=== PATIENT | female | born 1985 | race Two or more races ===

== ENCOUNTER 2024-03-09 18:24 | Emergency (ER) | payer MEDICAID, SELFPAY ==
[2024-03-09 18:25] VITALS: BMI 31.3
[2024-03-09 18:26] VITALS: BP 138/81; PULSE 97; RESP 19; TEMP 36.5; O2SAT 98
--- NOTE | 2024-03-09 18:44 | XR_ITS ---
Examination: Knee, left , 3 views Technique: Knee AP, lateral, oblique 3 views Date and time of exam: March 09, 2024 1857 hrs. Indications: Twisting injury to the knee today, knee pain Findings: Small knee effusion No fracture or dislocation Impression: No fracture or dislocation
--- NOTE | 2024-03-09 18:45 | EDNOTE_ITS ---
Lower Extremity Injury RME/HPI General Chief Complaint: Extremity Injury, Lower Stated Complaint: LEFT KNEE PAIN Time Seen by Provider: 03/09/24 18:44 Source: patient Arrival date/time: 03/09/24 18:24 38-year-old female presents emergency department complaining of left knee pain after hearing a pop while walking this past Saturday. Patient denies any fall or injury. Mode of arrival: wheelchair Limitations: physical limitation Related Data Home Medications ?Medication ?Instructions ?Recorded ?Confirmed albuterol sulfate 90 mcg/actuation 2 puff inhalation Q6H PRN Dyspnea 03/13/21 03/13/21 aerosol inhaler (Ventolin HFA) Previous Rx's ?Medication ?Instructions ?Recorded albuterol sulfate 90 mcg/actuation 2 puff inhalation QID #8.5 grams 03/14/21 aerosol inhaler albuterol sulfate 90 mcg/actuation 2 puff inhalation QID PRN 05/17/21 aerosol inhaler shortness of breath or wheezing #8.5 grams azithromycin 250 mg tablet See Rx Instructions PO .COMPLEX #6 05/17/21 tabs amoxicillin 875 mg-potassium 1 tab PO BID #14 tabs 05/26/21 clavulanate 125 mg tablet (Augmentin) fexofenadine 60 mg-pseudoephedrine 1 tab PO Q12H PRN sinus symptoms 05/26/21 ER 120 mg tablet,ext.release,12 hr #14 tabs (Maggi-D 12 Hour) prednisone 50 mg tablet 50 mg PO QDAY #5 tabs 05/26/21 sulfamethoxazole 800 1 tab PO Q12H #14 tabs 10/20/22 mg-trimethoprim 160 mg tablet (Bactrim DS) prednisone 50 mg tablet 50 mg PO QDAY #5 tabs 11/12/22 Lactobacillus 1 cap PO QDAY #30 caps 03/15/23 acidophilus-Bifidobac.animalis 2.5 billion cell capsule (Daily Probiotic) vpzgscpgqc-yanqvxaicmfpx-yfapzkrl 1 cap PO Q6H PRN headache #20 caps 03/15/23 50 mg-300 mg-40 mg capsule (Fioricet) ondansetron 4 mg disintegrating 4 mg PO Q6H PRN nausea and 03/15/23 tablet vomiting #10 tabs dicyclomine 20 mg tablet 20 mg PO BID #14 tabs 03/26/23 metronidazole 500 mg tablet 500 mg PO BID #14 tabs 03/26/23 ondansetron 4 mg disintegrating 4 mg PO Q8H #20 tabs 03/26/23 tablet acetaminophen 500 mg capsule 1,000 mg (2 x 500 mg) PO Q8HR PRN 05/06/23 pain #30 caps ibuprofen 800 mg tablet 800 mg PO TID PRN pain #30 tabs 05/06/23 ondansetron 4 mg disintegrating 4 mg PO Q8H PRN nausea and 05/06/23 tablet vomiting #10 tabs ibuprofen 600 mg tablet 600 mg PO Q8H PRN pain #20 tabs 03/09/24 Allergies Allergy/AdvReac Type Severity Reaction Status Date / Time ciprofloxacin Allergy Severe itching Verified 03/09/24 18:26 Review of Systems Review of Systems Systems Reviewed: All systems reviewed, normal except as documented Constitutional Constitutional: Reports system reviewed and no additional complaints, except as documented, Denies body ache(s), Denies chills and Denies fever(s) Eyes Eyes: Reports system reviewed and no additional complaints, except as documented and Denies change in vision ENT Ears, Nose, Mouth, and Throat: Reports system reviewed and no additional complaints, except as documented, Denies disequilibrium, Denies dizziness, Denies sore throat and Denies vertigo Cardiovascular Cardiovascular: Reports system reviewed and no additional complaints, except as documented, Denies chest pain and Denies dyspnea Respiratory Respiratory: Reports system reviewed and no additional complaints, except as documented, Denies chest congestion, Denies cough and Denies dyspnea Gastrointestinal Gastrointestinal: Reports system reviewed and no additional complaints, except as documented, Denies abdominal pain, Denies nausea and Denies vomiting Musculoskeletal Musculoskeletal: Reports system reviewed and no additional complaints, except as documented, Denies abnormal gait and Reports arthralgias Integumentary/Breasts Skin/Breast: Reports system reviewed and no additional complaints, except as documented, Denies erythema, Denies rash and Denies wounds Neurologic Neurologic: Reports system reviewed and no additional complaints, except as documented, Denies abnormal gait, Denies disequilibrium, Denies dizziness and Denies vertigo Past Medical History Past Medical History NEUROLOGIC: Positive Migraine; Negative Neurological Disorders CARDIAC: Negative Cardiac Disorders or Congestive Heart Failure RESPIRATORY: Positive Asthma; Negative Chronic Obstructive Pulmonary Disease (COPD) GASTROINTESTINAL: Positive Gall Bladder Disease; Negative Gastrointestinal Disorders GENITOURINARY: Negative Genitourinary Disorders or Renal Disease REPRODUCTIVE: Positive Previous Pregnancies; Negative Breast Cancer MUSCULOSKELETAL: Negative Musculoskeletal Disorders ENDOCRINE: Negative Endocrine Disorders, Diabetes Mellitus Type 1 or Diabetes Mellitus Type 2 HEMATOLOGIC: Negative Blood Disorders or Sickle Cell Disease OTHER HISTORY: Positive Blood Transfusions and Chicken Pox; Negative Autoimmune Disease, Blood Transfusion Reaction, Organ Transplant, MRSA, Clostridium Difficile or Breast Cancer Family History FAMILY HISTORY: Positive Family Respiratory Disorders, Family Cardiac Disorders, Family Gastrointestinal Problems and Family Surgery; Negative Family Psychiatric Problems, Family Cancer or Family Anesthesia Reaction Surgical History SURGICAL: Positive Abdominal Surgery, Tubal Ligation and Section; Negative Cardiac Surgery, Endocrine Surgery, Ear Surgery or Organ Transplant Social History SMOKING STATUS: Never smoker SUBSTANCE USE: does not use ED Exam General Limitations: Present physical limitation General appearance: Present alert and in no apparent distress Head Head exam: Present atraumatic Eye Eye exam: Present normal appearance, PERRL and EOMI ENT ENT exam: Present normal exam, normal oropharynx and mucous membranes moist Neck Neck exam: Present normal inspection, full ROM and trachea midline Chest Chest inspection: Present normal inspection and symmetric chest wall rise Respiratory Respiratory exam: Present normal lung sounds bilaterally Cardiovascular Cardiovascular exam: Present regular rate, normal rhythm and normal heart sounds Abdominal Exam Abdominal exam: Present soft and normal bowel sounds Extremities Exam Extremities exam: Present normal inspection and full ROM Expanded Lower Extremity Exam Knee exam: Present full ROM (Limited active range of motion left knee), tenderness (Left knee) and swelling (+1 left knee) Gait: observed and limited by pain Back Exam Back exam: Present normal inspection and full ROM Neurological Exam Neurological exam: Present alert, oriented X3 and CN II-XII intact Psychiatric Psychiatric exam: Present normal affect and normal mood Skin Skin exam: Present warm, dry, intact and normal color Course Quality Measures none Orders Category Date Time Status Apply knee immobilizer NOW Care 03/09/24 20:39 Completed Crutches .NOW Care 03/09/24 20:39 Completed XR knee LT 3V Stat Exams 03/09/24 18:44 Completed Ketorolac Inj [Toradol Inj] Med 03/09/24 18:44 Discontinued 30 mg IM X1 ONE Vital Signs Vital signs: Vital Signs Temperature 97.7 F 03/09/24 18:26 Pulse Rate 97 03/09/24 18:26 Respiratory Rate 19 03/09/24 18:26 Blood Pressure 138/81 H 03/09/24 18:26 Pulse Oximetry (%) 98 03/09/24 18:26 Oxygen Delivery Method Room Air 03/09/24 18:26 98% room air within normal limits Extremity Injury, Lower MDM Narrative MDM Narrative:: 38-year-old female presents emergency department complaining of left knee pain after hearing a pop while walking this past Saturday. Patient denies any fall or injury. X-rays were negative for any acute fracture or dislocation. Patient's left knee +1 edema with no erythema or signs of infection. Patient un able to bear weight without significant pain. Patient given crutches and knee immobilizer and instructed to follow-up with primary care provider and request MRI of his knee if symptoms persist. Instructed to return to emergency department for any worsening symptoms or as needed. Patient data External records reviewed:: [facility] previous records Clinical information provided by:: patient Social determinants that could affect healthcare access:: none Patient has the following chronic illnesses:: See chart How is presenting disease/condition affected by chronic disease/condition?: uneffected by Evaluation data The following diagnostics were reviewed and interpreted by me:: radiology exam(s) Lab and/or radiology exams considered but not ordered:: Ordered Interpretation Summary: Interpreted by me Medications / Prescriptions Medications or Prescriptions considered but not ordered:: Ordered Medication administrations:: Medication Administration History Discontinued Medications Ketorolac Tromethamine (Ketorolac Inj 60 Mg/2 Ml Vial) 30 mg IM X1 ONE Stop: 03/09/24 18:45 Last Admin: 03/09/24 19:46 Dose: 30 mg Documented By: Given Consultations Consultation(s) initiated? (list below): No Diagnosis Extremity Injury, Lower Differential Diagnosis: acute internal derangement of knee and other (Meniscus tear, ligamentous tear) Most likely diagnosis given after review of the tests above:: Knee sprain Admission Indicated Admission indicated?: not indicated Admission Request Was there a request for admission?: No Disposition Plan Disposition Plan: Discharge Discharge Attestation Discharge Attestation: The patient and all family members were given an opportunity to ask questions and understood the discharge instructions. Discharge instructions specifically effects, indications for sooner follow up or return to the emergency department, and the expected course of current diagnosis. Patient condition: Stable Discharge Plan Plan Patient Disposition: HOME (Self Care) Disposition Comment: Stable Prescriptions/Referrals Prescriptions/Med Rec: New ibuprofen 600 mg tablet 600 mg PO Q8H PRN (Reason: pain) Qty: 20 0RF No Action albuterol sulfate [Ventolin HFA] 90 mcg/actuation Hfa Aerosol Inhaler 2 puff INHALATION Q6H PRN (Reason: Dyspnea) albuterol sulfate 90 mcg/actuation HFA aerosol inhaler 2 puff inhalation QID Qty: 8.5 0RF amoxicillin-pot clavulanate [Augmentin] 875-125 mg tablet 1 tab PO BID Qty: 14 0RF prednisone 50 mg tablet 50 mg PO QDAY Qty: 5 0RF fexofenadine-pseudoephedrine [Maggi-D 12 Hour] 60-120 mg tablet extended release 12 hr 1 tab PO Q12H PRN (Reason: sinus symptoms) Qty: 14 0RF albuterol sulfate 90 mcg/actuation HFA aerosol inhaler 2 puff inhalation QID PRN (Reason: shortness of breath or wheezing) Qty: 8.5 0RF azithromycin 250 mg tablet See Rx Instructions .ROUTE .COMPLEX Qty: 6 0RF Rx Instructions: For 250 mg dose pack: take 500 mg today (day 1), then 250 mg for 4 days (days 2-5) sulfamethoxazole-trimethoprim [Bactrim DS] 800-160 mg tablet 1 tab PO Q12H Qty: 14 0RF prednisone 50 mg tablet 50 mg PO QDAY Qty: 5 0RF ibuprofen 800 mg tablet 800 mg PO TID PRN (Reason: pain) Qty: 30 0RF acetaminophen 500 mg capsule 1,000 mg PO Q8HR PRN (Reason: pain) Qty: 30 0RF ondansetron 4 mg tablet,disintegrating 4 mg PO Q8H PRN (Reason: nausea and vomiting) Qty: 10 0RF smljjjvrmw-zdwxbzjmusppq-jztu [Fioricet] 50-300-40 mg capsule 1 cap PO Q6H PRN (Reason: headache) Qty: 20 0RF Daily Probiotic 2.5 billion cell capsule 1 cap PO QDAY Qty: 30 0RF ondansetron 4 mg tablet,disintegrating 4 mg PO Q6H PRN (Reason: nausea and vomiting) Qty: 10 0RF metronidazole 500 mg tablet 500 mg PO BID Qty: 14 0RF dicyclomine 20 mg tablet 20 mg PO BID Qty: 14 0RF ondansetron 4 mg tablet,disintegrating 4 mg PO Q8H Qty: 20 0RF Referrals: Dorcas Ohara PA-C [Primary Care Provider] - In 1 week Problem List Clinical Impression: Knee pain Patient/Caregiver Discharge Instructions Discharge Activity: activity as tolerated Education Materials: MADDISON XAVIER Knee Sprain Additional Instructions: Take medication as prescribed. Follow-up with primary care provider and request referral to physical therapy or MRI of knee if symptoms persist. Return to the emergency department for any worsening symptoms or as needed. Print Language: Czech Stand Alone Forms: Rebeka Award Info., Patient Portal Info Letter PA/KAMLESH Supervising Physician PA/KAMLESH Supervising Physician: Dr. Shaista ADAMS Attestation Attestation The patient was seen by the midlevel practitioner. I, the co-signing physician, was present during the entire ER visit. While I did not physically examine the patient, I was available for consultation as needed.
[2024-03-09] MEDS: KETOROLAC INJ 60 MG/2 ML VIAL 30 MG IM (19:46)
== END 2024-03-09 21:00 | disposition home or self-care (01) ==
PROVIDERS: Emergency Provider Emergency Medicine; PCP Physician Assistant
DX: S89.92XA Unspecified injury of left lower leg, initial encounter (principal); X50.1XXA Overexertion from prolonged static or awkward postures, initial encounter; Y93.01 Activity, walking, marching and hiking
CPT/HCPCS: 73562; 96372; 99283; J1885

== ENCOUNTER 2024-04-10 13:02 | Emergency (ER) | payer MEDICAID, SELFPAY ==
[2024-04-10 13:11] VITALS: BP 131/84; PULSE 100; RESP 16; TEMP 36.8; O2SAT 98; BMI 34.4
--- NOTE | 2024-04-10 13:18 | PD.EDSKIN ---
ED Skin Abcess FB-RME/HPI General Chief complaint: Skin/Abscess/Foreign Body Stated complaint: BOIL LEFT HEAD/ PAIN/ PRESSURE/ CHILL/FEVER X3DAYS Time Seen by Provider: 04/10/24 13:16 Source: patient, RN notes reviewed and old records reviewed Arrival date/time: 04/10/24 13:02 Mode of arrival: ambulatory Limitations: no limitations RME / HPI RME / HPI narrative: 38yof presents to ED for redness and swelling to left frontal scalp x3 days. No preceding injury. Patient states affected area has gradually become more tender. Denies fever or vomiting. Patient has applied warm compresses without symptom improvement. 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 Related Data Home Medications ?Medication ?Instructions ?Recorded ?Confirmed albuterol sulfate 90 mcg/actuation 2 puff inhalation Q6H PRN Dyspnea 03/13/21 03/13/21 aerosol inhaler (Ventolin HFA) Previous Rx's ?Medication ?Instructions ?Recorded albuterol sulfate 90 mcg/actuation 2 puff inhalation QID #8.5 grams 03/14/21 aerosol inhaler albuterol sulfate 90 mcg/actuation 2 puff inhalation QID PRN 05/17/21 aerosol inhaler shortness of breath or wheezing #8.5 grams azithromycin 250 mg tablet See Rx Instructions PO .COMPLEX #6 05/17/21 tabs amoxicillin 875 mg-potassium 1 tab PO BID #14 tabs 05/26/21 clavulanate 125 mg tablet (Augmentin) fexofenadine 60 mg-pseudoephedrine 1 tab PO Q12H PRN sinus symptoms 05/26/21 ER 120 mg tablet,ext.release,12 hr #14 tabs (Maggi-D 12 Hour) prednisone 50 mg tablet 50 mg PO QDAY #5 tabs 05/26/21 sulfamethoxazole 800 1 tab PO Q12H #14 tabs 10/20/22 mg-trimethoprim 160 mg tablet (Bactrim DS) prednisone 50 mg tablet 50 mg PO QDAY #5 tabs 11/12/22 Lactobacillus 1 cap PO QDAY #30 caps 03/15/23 acidophilus-Bifidobac.animalis 2.5 billion cell capsule (Daily Probiotic) gtwfitfvbi-qhsqxhghhrwxv-lzeeqnoq 1 cap PO Q6H PRN headache #20 caps 03/15/23 50 mg-300 mg-40 mg capsule (Fioricet) ondansetron 4 mg disintegrating 4 mg PO Q6H PRN nausea and 03/15/23 tablet vomiting #10 tabs dicyclomine 20 mg tablet 20 mg PO BID #14 tabs 03/26/23 metronidazole 500 mg tablet 500 mg PO BID #14 tabs 03/26/23 ondansetron 4 mg disintegrating 4 mg PO Q8H #20 tabs 03/26/23 tablet acetaminophen 500 mg capsule 1,000 mg (2 x 500 mg) PO Q8HR PRN 05/06/23 pain #30 caps ibuprofen 800 mg tablet 800 mg PO TID PRN pain #30 tabs 05/06/23 ondansetron 4 mg disintegrating 4 mg PO Q8H PRN nausea and 05/06/23 tablet vomiting #10 tabs ibuprofen 600 mg tablet 600 mg PO Q8H PRN pain #20 tabs 03/09/24 acetaminophen 500 mg tablet 1,000 mg (2 x 500 mg) PO Q6H PRN 04/10/24 (Tylenol Extra Strength) pain #30 tabs ibuprofen 600 mg tablet 600 mg PO Q6H PRN pain #30 tabs 04/10/24 sulfamethoxazole 800 1 tab PO BID 7 days #14 tabs 04/10/24 mg-trimethoprim 160 mg tablet (Bactrim DS) Allergies Allergy/AdvReac Type Severity Reaction Status Date / Time ciprofloxacin Allergy Severe itching Verified 04/10/24 13:03 Review of Systems Review of Systems Systems Reviewed: All systems reviewed, normal except as documented Constitutional Constitutional: Denies chills, Denies fever(s) and Reports headache(s) ENT Ears, Nose, Mouth, and Throat: Reports headache(s) Gastrointestinal Gastrointestinal: Denies nausea and Denies vomiting Integumentary/Breasts Skin/Breast: Reports erythema and Reports skin swelling Neurologic Neurologic: Reports headache(s) Past Medical History Surgical History OTHER SURGICAL HX: Denies past surgical history Social History SMOKING STATUS: Never smoker SUBSTANCE USE: does not use ALCOHOL: Never Past Medical History Comments PMH COMMENT: Asthma, obesity ED Exam General Limitations: Present no limitations General appearance: Present alert and in no apparent distress Head Head exam: Present atraumatic, normocephalic and other (Nickel sized area of erythema, mild swelling and tenderness to left frontal scalp/hairline. Mild induration, no fluctuance or drainage.) Eye Eye exam: Present normal appearance, PERRL and EOMI ENT ENT exam: Present normal exam and mucous membranes moist Neck Neck exam: Present normal inspection and full ROM Chest Chest inspection: Present normal inspection and symmetric chest wall rise Respiratory Respiratory exam: Present normal lung sounds bilaterally; Absent respiratory distress Cardiovascular Cardiovascular exam: Present regular rate and normal rhythm Extremities Exam Extremities exam: Present normal inspection and full ROM Neurological Exam Neurological exam: Present alert and oriented X3 Psychiatric Psychiatric exam: Present normal affect and normal mood Skin Skin exam: Present warm, dry and intact Course Quality Measures none Orders Category Date Time Status Acetaminophen Tab [Tylenol ES Tab] Med 04/10/24 13:19 Discontinued 1,000 mg PO X1 ONE Ketorolac Inj [Toradol Inj] Med 04/10/24 13:19 Discontinued 30 mg IM X1 ONE Vital Signs Vital signs: Vital Signs Temperature 98.2 F 04/10/24 13:11 Pulse Rate 100 04/10/24 13:11 Respiratory Rate 16 04/10/24 13:11 Blood Pressure 131/84 H 04/10/24 13:11 Pulse Oximetry (%) 98 04/10/24 13:11 Oxygen Delivery Method Room Air 04/10/24 13:11 Skin / Abscess / Foreign Body MDM Narrative MDM Narrative:: 38yof presents to ED for redness and swelling to left frontal scalp x3 days. No preceding injury.? Patient states affected area has gradually become more tender.? Denies fever or vomiting.? Patient has applied warm compresses without symptom improvement.? 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 Exam findings c/w folliculitis, there is nothing to I&D at this time. Will treat with oral antibiotics, encourage continued warm compresses, Motrin/Tylenol prn pain. Stable for discharge, RTED precautions given. Patient data External records reviewed:: [facility] previous records (03/09/2024 ED visit for knee pain) Clinical information provided by:: patient Social determinants that could affect healthcare access:: other (specify) (Poor access to healthcare) Patient has the following chronic illnesses:: Asthma, obesity How is presenting disease/condition affected by chronic disease/condition?: uneffected by Evaluation data The following diagnostics were reviewed and interpreted by me:: other (specify) (None) Lab and/or radiology exams considered but not ordered:: None Interpretation Summary: na Medications / Prescriptions Medications or Prescriptions considered but not ordered:: None Medication administrations:: Medication Administration History Discontinued Medications Acetaminophen (Acetaminophen 500 Mg Tablet) 1,000 mg PO X1 ONE Stop: 04/10/24 13:20 Last Admin: 04/10/24 13:34 Dose: 1,000 mg Documented By: Ketorolac Tromethamine (Ketorolac Inj 60 Mg/2 Ml Vial) 30 mg IM X1 ONE Stop: 04/10/24 13:20 Last Admin: 04/10/24 13:34 Dose: 30 mg Documented By: Above medications administered in ED Consultations Consultation(s) initiated? (list below): No Diagnosis Skin/Abscess Differential Diagnosis: other (Abscess, cellulitis, insect bite, dermatitis, folliculitis) Most likely diagnosis given after review of the tests above:: Folliculitis Admission Indicated Admission indicated?: not indicated Admission Request Was there a request for admission?: No Disposition Plan Disposition Plan: Discharge Discharge Attestation Discharge Attestation: The patient and all family members were given an opportunity to ask questions and understood the discharge instructions. Discharge instructions specifically effects, indications for sooner follow up or return to the emergency department, and the expected course of current diagnosis. Patient condition: Stable Discharge Plan Plan Patient Disposition: HOME (Self Care) Patient condition on transfer: Stable Prescriptions/Referrals Prescriptions/Med Rec: New sulfamethoxazole-trimethoprim [Bactrim DS] 800-160 mg tablet 1 tab PO BID 7 Days Qty: 14 0RF ibuprofen 600 mg tablet 600 mg PO Q6H PRN (Reason: pain) Qty: 30 0RF acetaminophen [Tylenol Extra Strength] 500 mg tablet 1,000 mg PO Q6H PRN (Reason: pain) Qty: 30 0RF No Action albuterol sulfate [Ventolin HFA] 90 mcg/actuation Hfa Aerosol Inhaler 2 puff INHALATION Q6H PRN (Reason: Dyspnea) albuterol sulfate 90 mcg/actuation HFA aerosol inhaler 2 puff inhalation QID Qty: 8.5 0RF amoxicillin-pot clavulanate [Augmentin] 875-125 mg tablet 1 tab PO BID Qty: 14 0RF prednisone 50 mg tablet 50 mg PO QDAY Qty: 5 0RF fexofenadine-pseudoephedrine [Maggi-D 12 Hour] 60-120 mg tablet extended release 12 hr 1 tab PO Q12H PRN (Reason: sinus symptoms) Qty: 14 0RF albuterol sulfate 90 mcg/actuation HFA aerosol inhaler 2 puff inhalation QID PRN (Reason: shortness of breath or wheezing) Qty: 8.5 0RF azithromycin 250 mg tablet See Rx Instructions .ROUTE .COMPLEX Qty: 6 0RF Rx Instructions: For 250 mg dose pack: take 500 mg today (day 1), then 250 mg for 4 days (days 2-5) sulfamethoxazole-trimethoprim [Bactrim DS] 800-160 mg tablet 1 tab PO Q12H Qty: 14 0RF prednisone 50 mg tablet 50 mg PO QDAY Qty: 5 0RF ibuprofen 800 mg tablet 800 mg PO TID PRN (Reason: pain) Qty: 30 0RF acetaminophen 500 mg capsule 1,000 mg PO Q8HR PRN (Reason: pain) Qty: 30 0RF ondansetron 4 mg tablet,disintegrating 4 mg PO Q8H PRN (Reason: nausea and vomiting) Qty: 10 0RF spxpuvuhte-izhatdohhskii-bsik [Fioricet] 50-300-40 mg capsule 1 cap PO Q6H PRN (Reason: headache) Qty: 20 0RF Daily Probiotic 2.5 billion cell capsule 1 cap PO QDAY Qty: 30 0RF ondansetron 4 mg tablet,disintegrating 4 mg PO Q6H PRN (Reason: nausea and vomiting) Qty: 10 0RF metronidazole 500 mg tablet 500 mg PO BID Qty: 14 0RF dicyclomine 20 mg tablet 20 mg PO BID Qty: 14 0RF ondansetron 4 mg tablet,disintegrating 4 mg PO Q8H Qty: 20 0RF ibuprofen 600 mg tablet 600 mg PO Q8H PRN (Reason: pain) Qty: 20 0RF Problem List Clinical Impression: Folliculitis Patient/Caregiver Discharge Instructions Education Materials: ED Folliculitis Print Language: Kyrgyz Stand Alone Forms: Rebeka Award Info., Work/School Release, Patient Portal Info Letter PA/EVP AND CHIEF OPERATING OFFICER Supervising Physician PA/EVP AND CHIEF OPERATING OFFICER Supervising Physician: Cherry
[2024-04-10] MEDS: KETOROLAC INJ 60 MG/2 ML VIAL 30 MG IM (13:34)
[2024-04-10] MEDS: ACETAMINOPHEN 500 MG TABLET 1000 MG PO (13:34)
== END 2024-04-10 13:54 | disposition home or self-care (01) ==
PROVIDERS: Emergency Provider Emergency Medicine; PCP Physician Assistant
DX: L73.9 Follicular disorder, unspecified (principal)
CPT/HCPCS: 96372; 99283; J1885; A9270

== ENCOUNTER 2024-04-23 19:47 | Emergency (ER) | payer MEDICAID, SELFPAY ==
[2024-04-23 19:48] VITALS: BMI 32.8
[2024-04-23 20:10] VITALS: BP 112/85; PULSE 99; RESP 18; TEMP 36.9; O2SAT 99
--- NOTE | 2024-04-23 20:31 | EDNOTE_ITS ---
ED Eye Problem RME/HPI General Chief complaint: Eye Problems Stated complaint: LEFT EYE RED,SWELLING,ITCHING,BURN,WATERY Time Seen by Provider: 04/23/24 20:05 Arrival date/time: 04/23/24 19:47 RME / HPI RME / HPI Narrative: This section includes all my notes and documentations, including HPI, PE, and ED course. Robert Carey MD HPI: 38-year-old female here with several days of worsening pain and swelling in the left thigh. No fever. No other complaints. ROS: All negative except as documented in HPI. Physical Exam: General: Alert and oriented. Eyes: Left conjunctiva injected with exudate. Left upper eyelid severely edematous with erythema and calor and tenderness. ENT: No nasal congestion. Neck: Supple. Lungs: No respiratory distress. Skin: Warm and dry. Neuro: Alert and oriented X 3. Made clinical diagnosis of left blepharitis and conjunctivitis. Treatment here included Augmentin and ibuprofen. Recommended a trial of outpatient treatment. Based on my best medical judgment, made decision no further evaluation or treatment indicated at this time. Patient understands and agrees to the discharge instructions customized and printed, see below. Discharge Instructions from Dr. Carey printed for you: 1. Take Augmentin and use the eyedrops for your severe left eye infection. 2. Ibuprofen 800 mg every 6-8 hours today and tomorrow to decrease inflammation then as needed. 3. And never touch your eyes with your hands which has many dangerous germs. 4. See a private doctor next week if not completely better. Ask for a referral to see fundraising specialist. 5. Seek immediate medical care with worsening or with any concerns. Robert Carey MD Related Data Home Medications ?Medication ?Instructions ?Recorded ?Confirmed albuterol sulfate 90 mcg/actuation 2 puff inhalation Q6H PRN Dyspnea 03/13/21 03/13/21 aerosol inhaler (Ventolin HFA) Previous Rx's ?Medication ?Instructions ?Recorded albuterol sulfate 90 mcg/actuation 2 puff inhalation QID #8.5 grams 03/14/21 aerosol inhaler albuterol sulfate 90 mcg/actuation 2 puff inhalation QID PRN 05/17/21 aerosol inhaler shortness of breath or wheezing #8.5 grams azithromycin 250 mg tablet See Rx Instructions PO .COMPLEX #6 05/17/21 tabs amoxicillin 875 mg-potassium 1 tab PO BID #14 tabs 05/26/21 clavulanate 125 mg tablet (Augmentin) fexofenadine 60 mg-pseudoephedrine 1 tab PO Q12H PRN sinus symptoms 05/26/21 ER 120 mg tablet,ext.release,12 hr #14 tabs (Maggi-D 12 Hour) prednisone 50 mg tablet 50 mg PO QDAY #5 tabs 05/26/21 sulfamethoxazole 800 1 tab PO Q12H #14 tabs 10/20/22 mg-trimethoprim 160 mg tablet (Bactrim DS) prednisone 50 mg tablet 50 mg PO QDAY #5 tabs 11/12/22 Lactobacillus 1 cap PO QDAY #30 caps 03/15/23 acidophilus-Bifidobac.animalis 2.5 billion cell capsule (Daily Probiotic) brfhgsikfv-eojxoiuniuavu-hrnvzbnm 1 cap PO Q6H PRN headache #20 caps 03/15/23 50 mg-300 mg-40 mg capsule (Fioricet) ondansetron 4 mg disintegrating 4 mg PO Q6H PRN nausea and 03/15/23 tablet vomiting #10 tabs dicyclomine 20 mg tablet 20 mg PO BID #14 tabs 03/26/23 metronidazole 500 mg tablet 500 mg PO BID #14 tabs 03/26/23 ondansetron 4 mg disintegrating 4 mg PO Q8H #20 tabs 03/26/23 tablet acetaminophen 500 mg capsule 1,000 mg (2 x 500 mg) PO Q8HR PRN 05/06/23 pain #30 caps ibuprofen 800 mg tablet 800 mg PO TID PRN pain #30 tabs 05/06/23 ondansetron 4 mg disintegrating 4 mg PO Q8H PRN nausea and 05/06/23 tablet vomiting #10 tabs ibuprofen 600 mg tablet 600 mg PO Q8H PRN pain #20 tabs 03/09/24 acetaminophen 500 mg tablet 1,000 mg (2 x 500 mg) PO Q6H PRN 04/10/24 (Tylenol Extra Strength) pain #30 tabs ibuprofen 600 mg tablet 600 mg PO Q6H PRN pain #30 tabs 04/10/24 amoxicillin 875 mg-potassium 1 tab PO BID #10 tabs 04/23/24 clavulanate 125 mg tablet racyyxog-ndecradbg-qsqodtow 3.5 1 drp ophthalmic (eye) QID 5 days 04/23/24 mg/mL-10,000 unit/mL-0.1% eye #5 mL drops (Maxitrol) Allergies Allergy/AdvReac Type Severity Reaction Status Date / Time ciprofloxacin Allergy Severe itching Verified 04/10/24 13:03 Course Quality Measures none Orders Category Date Time Status Amoxicillin/Pot Clav 875 [Augmentin 875] Med 04/23/24 20:20 Discontinued 1 tab PO X1 ONE Ibuprofen Tab [Motrin Tab] Med 04/23/24 20:20 Discontinued 800 mg PO X1 ONE Vital Signs Vital signs: Vital Signs Temperature 98.5 F 04/23/24 20:10 Pulse Rate 99 04/23/24 20:10 Respiratory Rate 18 04/23/24 20:10 Blood Pressure 112/85 H 04/23/24 20:10 Pulse Oximetry (%) 99 04/23/24 20:10 Oxygen Delivery Method Room Air 04/23/24 20:10 Eye Patient data External records reviewed:: [facility] previous records Clinical information provided by:: patient Social determinants that could affect healthcare access:: none Patient has the following chronic illnesses:: Asthma How is presenting disease/condition affected by chronic disease/condition?: uneffected by Evaluation data The following diagnostics were reviewed and interpreted by me:: other (specify) (No diagnostic tests indicated) Lab and/or radiology exams considered but not ordered:: None Interpretation Summary: No diagnostic tests ordered Medications / Prescriptions Medications or Prescriptions considered but not ordered:: None Medication administrations:: Medication Administration History Discontinued Medications Amoxicillin/Clavulanate Potassium (Amoxicillin/Pot Clav 875 Tablet) 1 tab PO X1 ONE Stop: 04/23/24 20:21 Ibuprofen (Ibuprofen Tab 400 Mg Tablet) 800 mg PO X1 ONE Stop: 04/23/24 20:21 Augmentin and ibuprofen Consultations Consultation(s) initiated? (list below): No Diagnosis Eye Problem Differential Diagnosis: corneal abrasion, conjunctivitis, periorbital cellulitis, subconjunctival hemorrhage and other (Blepharitis) Most likely diagnosis given after review of the tests above:: Conjunctivitis and blepharitis Admission Indicated Admission indicated?: not indicated Explain why admission is indicated or not indicated:: Admission criteria not met Admission Request Was there a request for admission?: No Disposition Plan Disposition Plan: Discharge Discharge Attestation Discharge Attestation: The patient and all family members were given an opportunity to ask questions and understood the discharge instructions. Discharge instructions specifically effects, indications for sooner follow up or return to the emergency department, and the expected course of current diagnosis. Patient condition: Stable Discharge Plan Plan Patient Disposition: HOME (Self Care) Prescriptions/Referrals Prescriptions/Med Rec: New amoxicillin-pot clavulanate 875-125 mg tablet 1 tab PO BID Qty: 10 0RF neomycin-polymyxin B-dexameth [Maxitrol] 3.5mg/mL-10,000 unit/mL-0.1 % drops,suspension 1 drp ophthalmic (eye) QID 5 Days Qty: 5 0RF No Action albuterol sulfate [Ventolin HFA] 90 mcg/actuation Hfa Aerosol Inhaler 2 puff INHALATION Q6H PRN (Reason: Dyspnea) albuterol sulfate 90 mcg/actuation HFA aerosol inhaler 2 puff inhalation QID Qty: 8.5 0RF amoxicillin-pot clavulanate [Augmentin] 875-125 mg tablet 1 tab PO BID Qty: 14 0RF prednisone 50 mg tablet 50 mg PO QDAY Qty: 5 0RF fexofenadine-pseudoephedrine [Maggi-D 12 Hour] 60-120 mg tablet extended release 12 hr 1 tab PO Q12H PRN (Reason: sinus symptoms) Qty: 14 0RF albuterol sulfate 90 mcg/actuation HFA aerosol inhaler 2 puff inhalation QID PRN (Reason: shortness of breath or wheezing) Qty: 8.5 0RF azithromycin 250 mg tablet See Rx Instructions .ROUTE .COMPLEX Qty: 6 0RF Rx Instructions: For 250 mg dose pack: take 500 mg today (day 1), then 250 mg for 4 days (days 2-5) sulfamethoxazole-trimethoprim [Bactrim DS] 800-160 mg tablet 1 tab PO Q12H Qty: 14 0RF prednisone 50 mg tablet 50 mg PO QDAY Qty: 5 0RF ibuprofen 800 mg tablet 800 mg PO TID PRN (Reason: pain) Qty: 30 0RF acetaminophen 500 mg capsule 1,000 mg PO Q8HR PRN (Reason: pain) Qty: 30 0RF ondansetron 4 mg tablet,disintegrating 4 mg PO Q8H PRN (Reason: nausea and vomiting) Qty: 10 0RF ibuprofen 600 mg tablet 600 mg PO Q6H PRN (Reason: pain) Qty: 30 0RF acetaminophen [Tylenol Extra Strength] 500 mg tablet 1,000 mg PO Q6H PRN (Reason: pain) Qty: 30 0RF quebpocybb-jxairtjlwtdxa-kcub [Fioricet] 50-300-40 mg capsule 1 cap PO Q6H PRN (Reason: headache) Qty: 20 0RF Daily Probiotic 2.5 billion cell capsule 1 cap PO QDAY Qty: 30 0RF ondansetron 4 mg tablet,disintegrating 4 mg PO Q6H PRN (Reason: nausea and vomiting) Qty: 10 0RF metronidazole 500 mg tablet 500 mg PO BID Qty: 14 0RF dicyclomine 20 mg tablet 20 mg PO BID Qty: 14 0RF ondansetron 4 mg tablet,disintegrating 4 mg PO Q8H Qty: 20 0RF ibuprofen 600 mg tablet 600 mg PO Q8H PRN (Reason: pain) Qty: 20 0RF Problem List Clinical Impression: Infection of left eye Patient/Caregiver Discharge Instructions Discharge Activity: activity as tolerated Education Materials: ED Blepharitis, ED Conjunctivitis, Bacterial Additional Instructions: Discharge Instructions from Dr. Carey printed for you: 1. Take Augmentin and use the eyedrops for your severe left eye infection. 2. Ibuprofen 800 mg every 6-8 hours today and tomorrow to decrease inflammation then as needed. 3. And never touch your eyes with your hands which has many dangerous germs. 4. See a private doctor next week if not completely better. Ask for a referral to see fundraising specialist. 5. Seek immediate medical care with worsening or with any concerns. Print Language: Serbian Stand Alone Forms: Rebeka Award Info., Patient Portal Info Letter
[2024-04-23] MEDS: IBUPROFEN TAB 400 MG TABLET 800 MG PO (20:36)
[2024-04-23] MEDS: AMOXICILLIN/POT CLAV 875 TABLET 1 TAB PO (20:36)
== END 2024-04-23 22:04 | disposition home or self-care (01) ==
LOC: SERX 20:39
PROVIDERS: Emergency Provider Emergency Medicine; PCP Physician Assistant
DX: H01.004 Unspecified blepharitis left upper eyelid (principal); H10.9 Unspecified conjunctivitis
CPT/HCPCS: 99282; A9270

== ENCOUNTER 2024-06-15 11:41 | Emergency (ER) | payer MEDICAID, SELFPAY ==
[2024-06-15 11:42] VITALS: BMI 34.4
[2024-06-15 12:04] VITALS: BP 131/89; PULSE 130; RESP 20; TEMP 38.1; O2SAT 97
--- NOTE | 2024-06-15 12:05 | XR_ITS ---
Examination: PA lateral chest 2 views Technique: Upright PA lateral chest 2 views Exam date and time: June 15, 2024 1232 hrs. Comparison May 06, 2023 Indications: Shortness of breath beginning 3 months ago. Findings: Normal heart size. No pneumonia or pulmonary edema The osseous structures are intact Impression: No active disease
[2024-06-15] MEDS: DEXAMETHASONE SOD PHOS INJ 10 MG/ML VIAL PO (12:25)
[2024-06-15 12:43] VITALS: TEMP 38.1
[2024-06-15] MEDS: ACETAMINOPHEN 500 MG TABLET 1000 MG PO (12:43)
[2024-06-15] MEDS: IBUPROFEN TAB 400 MG TABLET 800 MG PO (12:43)
[2024-06-15 12:44] VITALS: PULSE 95
[2024-06-15] MEDS: ALBUTEROL RT 2.5 MG/0.5 ML NEBU 5 MG INH (12:44)
[2024-06-15] MEDS: IPRATROPIUM RT 0.5 MG/ 2.5 ML NEBU 1 MG INH (12:44)
[2024-06-15 12:47] VITALS: PULSE 96; RESP 19; O2SAT 99
--- NOTE | 2024-06-15 14:19 | PD.ASTHM ---
ED Asthma RME/HPI General Chief Complaint: Asthma Stated Complaint: ASTHMA EXACERBATION; WHEEZING AND CHEST TIGHTNESS Time Seen by Provider: 06/15/24 12:04 Arrival date/time: 06/15/24 11:41 38-year-old female with history of asthma presents emergency department complains of cough, congestion, fever and reports that her asthma is acting up Limitations: no limitations Related Data Home Medications ?Medication ?Instructions ?Recorded ?Confirmed albuterol sulfate 90 mcg/actuation 2 puff inhalation Q6H PRN Dyspnea 03/13/21 03/13/21 aerosol inhaler (Ventolin HFA) Previous Rx's ?Medication ?Instructions ?Recorded albuterol sulfate 90 mcg/actuation 2 puff inhalation QID #8.5 grams 03/14/21 aerosol inhaler albuterol sulfate 90 mcg/actuation 2 puff inhalation QID PRN 05/17/21 aerosol inhaler shortness of breath or wheezing #8.5 grams azithromycin 250 mg tablet See Rx Instructions PO .COMPLEX #6 05/17/21 tabs amoxicillin 875 mg-potassium 1 tab PO BID #14 tabs 05/26/21 clavulanate 125 mg tablet (Augmentin) fexofenadine 60 mg-pseudoephedrine 1 tab PO Q12H PRN sinus symptoms 05/26/21 ER 120 mg tablet,ext.release,12 hr #14 tabs (Maggi-D 12 Hour) prednisone 50 mg tablet 50 mg PO QDAY #5 tabs 05/26/21 sulfamethoxazole 800 1 tab PO Q12H #14 tabs 10/20/22 mg-trimethoprim 160 mg tablet (Bactrim DS) prednisone 50 mg tablet 50 mg PO QDAY #5 tabs 11/12/22 Lactobacillus 1 cap PO QDAY #30 caps 03/15/23 acidophilus-Bifidobac.animalis 2.5 billion cell capsule (Daily Probiotic) yeiwlmsqgh-uxcsuwdwdyuga-lvbomtts 1 cap PO Q6H PRN headache #20 caps 03/15/23 50 mg-300 mg-40 mg capsule (Fioricet) ondansetron 4 mg disintegrating 4 mg PO Q6H PRN nausea and 03/15/23 tablet vomiting #10 tabs dicyclomine 20 mg tablet 20 mg PO BID #14 tabs 03/26/23 metronidazole 500 mg tablet 500 mg PO BID #14 tabs 03/26/23 ondansetron 4 mg disintegrating 4 mg PO Q8H #20 tabs 03/26/23 tablet acetaminophen 500 mg capsule 1,000 mg (2 x 500 mg) PO Q8HR PRN 05/06/23 pain #30 caps ibuprofen 800 mg tablet 800 mg PO TID PRN pain #30 tabs 05/06/23 ondansetron 4 mg disintegrating 4 mg PO Q8H PRN nausea and 05/06/23 tablet vomiting #10 tabs ibuprofen 600 mg tablet 600 mg PO Q8H PRN pain #20 tabs 03/09/24 acetaminophen 500 mg tablet 1,000 mg (2 x 500 mg) PO Q6H PRN 04/10/24 (Tylenol Extra Strength) pain #30 tabs ibuprofen 600 mg tablet 600 mg PO Q6H PRN pain #30 tabs 04/10/24 amoxicillin 875 mg-potassium 1 tab PO BID #10 tabs 04/23/24 clavulanate 125 mg tablet benzonatate 100 mg capsule 100 mg PO TID #14 caps 06/15/24 prednisone 10 mg tablet 30 mg (3 x 10 mg) PO BID 3 days 06/15/24 #18 tabs Allergies Allergy/AdvReac Type Severity Reaction Status Date / Time ciprofloxacin Allergy Severe itching Verified 06/15/24 11:46 Review of Systems Review of Systems Systems Reviewed: All systems reviewed, normal except as documented Constitutional Constitutional: Reports system reviewed and no additional complaints, except as documented, Denies fever(s) and Denies headache(s) Eyes Eyes: Reports system reviewed and no additional complaints, except as documented and Denies blurry vision ENT Ears, Nose, Mouth, and Throat: Reports system reviewed and no additional complaints, except as documented, Denies headache(s), Denies nasal congestion and Denies nasal discharge Cardiovascular Cardiovascular: Reports system reviewed and no additional complaints, except as documented, Denies chest pain and Denies dyspnea Respiratory Respiratory: Reports system reviewed and no additional complaints, except as documented, Reports chest congestion, Reports cough, Denies dyspnea and Reports wheezing Gastrointestinal Gastrointestinal: Reports system reviewed and no additional complaints, except as documented and Denies abdominal pain Integumentary/Breasts Skin/Breast: Reports system reviewed and no additional complaints, except as documented and Denies rash Neurologic Neurologic: Reports system reviewed and no additional complaints, except as documented, Reports as per HPI and Denies headache(s) Allergic/Immunologic Allergic/Immunologic: Reports wheezing Past Medical History Past Medical History NEUROLOGIC: Positive Migraine; Negative Neurological Disorders CARDIAC: Negative Cardiac Disorders or Congestive Heart Failure RESPIRATORY: Positive Asthma; Negative Chronic Obstructive Pulmonary Disease (COPD) GASTROINTESTINAL: Positive Gall Bladder Disease; Negative Gastrointestinal Disorders GENITOURINARY: Negative Genitourinary Disorders or Renal Disease REPRODUCTIVE: Positive Previous Pregnancies; Negative Breast Cancer MUSCULOSKELETAL: Negative Musculoskeletal Disorders ENDOCRINE: Negative Endocrine Disorders, Diabetes Mellitus Type 1 or Diabetes Mellitus Type 2 HEMATOLOGIC: Negative Blood Disorders or Sickle Cell Disease OTHER HISTORY: Positive Blood Transfusions and Chicken Pox; Negative Autoimmune Disease, Blood Transfusion Reaction, Organ Transplant, MRSA, Clostridium Difficile or Breast Cancer Family History FAMILY HISTORY: Positive Family Respiratory Disorders, Family Cardiac Disorders, Family Gastrointestinal Problems and Family Surgery; Negative Family Psychiatric Problems, Family Cancer or Family Anesthesia Reaction Surgical History SURGICAL: Positive Abdominal Surgery, Tubal Ligation and Section; Negative Cardiac Surgery, Endocrine Surgery, Ear Surgery or Organ Transplant Social History SMOKING STATUS: Never smoker SUBSTANCE USE: does not use ED Exam General Limitations: Present no limitations General appearance: Present alert and in no apparent distress Head Head exam: Present atraumatic, normocephalic and normal inspection Eye Eye exam: Present normal appearance, PERRL and EOMI; Absent conjunctival injection ENT ENT exam: Present normal exam, normal oropharynx and mucous membranes moist Neck Neck exam: Present normal inspection, full ROM and trachea midline Chest Chest inspection: Present normal inspection and symmetric chest wall rise Respiratory Respiratory exam: Present wheezes; Absent respiratory distress, stridor, accessory muscle use or prolonged expiratory phase Cardiovascular Cardiovascular exam: Present regular rate, normal rhythm and normal heart sounds Abdominal Exam Abdominal exam: Present soft and normal bowel sounds Extremities Exam Extremities exam: Present normal inspection and full ROM Back Exam Back exam: Present normal inspection and full ROM Neurological Exam Neurological exam: Present alert, oriented X3 and CN II-XII intact Psychiatric Psychiatric exam: Present normal affect and normal mood Skin Skin exam: Present warm, dry, intact and normal color Course Quality Measures none Orders Category Date Time Status Bedside Influenza A&B Antigen Test NOW Care 06/15/24 12:05 Completed XR chest 2V Stat Exams 06/15/24 12:05 Completed ALBUTEROL RT 0.5ml [Proventil Rt 0.5ml] Med 06/15/24 12:05 Discontinued 5 mg INH X1 ONE Acetaminophen Tab [Tylenol ES Tab] Med 06/15/24 12:27 Discontinued 1,000 mg PO X1 ONE Dexamethasone Inj [Decadron Inj] Med 06/15/24 12:05 Discontinued 10 mg PO X1 ONE Ibuprofen Tab [Motrin Tab] Med 06/15/24 12:27 Discontinued 800 mg PO X1 ONE Ipratropium Vanderbilt Rt Tracey [Atrovent Rt Tracey] Med 06/15/24 12:05 Discontinued 1 mg INH X1 ONE Sodium Chloride Rt Tracey 0.9% [NS Rt Tracey 0.9%] Med 06/15/24 12:05 Active 3 ml INH PRN PRN Vital Signs Vital signs: Vital Signs Temperature 100.6 F H 06/15/24 12:04 Pulse Rate 130 H 06/15/24 12:04 Respiratory Rate 20 06/15/24 12:04 Blood Pressure 131/89 H 06/15/24 12:04 Pulse Oximetry (%) 97 06/15/24 12:04 Oxygen Delivery Method Room Air 06/15/24 12:04 O2 saturation 97% room air within the limits Asthma MDM Narrative MDM Narrative:: 38-year-old female with history of asthma presents emergency department complains of cough, congestion, fever and reports that her asthma is acting up On exam patient does not appear ill or toxic in no acute distress Chest x-ray obtained no acute pneumonic infiltrates noted Patient tested positive for influenza I believe the patient's influenza triggered her asthma patient does have wheezing bilaterally Patient can breathing treatment steroids at time of reevaluation lungs are clear to auscultation Patient to medication for fever and bodyaches which she also reports improved her symptoms Patient discharged home in no distress to follow-up with primary care doctor in the next 24 to 48 hours and for any worsening symptoms to return to the ER immediately Patient data External records reviewed:: [facility] previous records Clinical information provided by:: patient Social determinants that could affect healthcare access:: none Patient has the following chronic illnesses:: Asthma How is presenting disease/condition affected by chronic disease/condition?: no chronic disease Evaluation data The following diagnostics were reviewed and interpreted by me:: lab results and radiology exam(s) Lab and/or radiology exams considered but not ordered:: Labs radiology obtain Interpretation Summary: Reviewed by me given Medications / Prescriptions Medications or Prescriptions considered but not ordered:: Given Medication administrations:: Medication Administration History Sodium Chloride (Sodium Chloride Rt Tracey 0.9% 3 Ml Nebu) 3 ml INH PRN PRN PRN Reason: SOLN Stop: 07/15/24 12:04 Discontinued Medications Acetaminophen (Acetaminophen 500 Mg Tablet) 1,000 mg PO X1 ONE Stop: 06/15/24 12:28 Last Admin: 06/15/24 12:43 Dose: 1,000 mg Documented By: Albuterol (Albuterol Rt 2.5 Mg/0.5 Ml Nebu) 5 mg INH X1 ONE Stop: 06/15/24 12:06 Last Admin: 06/15/24 12:44 Dose: 5 mg Documented By: MARGA Dexamethasone Sodium Phosphate (Dexamethasone Sod Phos Inj 10 Mg/Ml Vial) 10 mg PO X1 ONE Stop: 06/15/24 12:06 Last Admin: 06/15/24 12:25 Dose: 10 mg Documented By: Comments: given po Ibuprofen (Ibuprofen Tab 400 Mg Tablet) 800 mg PO X1 ONE Stop: 06/15/24 12:28 Last Admin: 06/15/24 12:43 Dose: 800 mg Documented By: Ipratropium Vanderbilt (Ipratropium Rt 0.5 Mg/ 2.5 Ml Nebu) 1 mg INH X1 ONE Stop: 06/15/24 12:06 Last Admin: 06/15/24 12:44 Dose: 1 mg Documented By: MARGA Consultations Consultation(s) initiated? (list below): No Diagnosis Differential diagnosis asthma: Acute exacerbation, Status asthmaticus and Acute asthmatic bronchitis Most likely diagnosis given after review of the tests above:: Asthma Admission Indicated Admission indicated?: not indicated Admission Request Was there a request for admission?: No Disposition Plan Disposition Plan: Discharge Discharge Attestation Discharge Attestation: The patient and all family members were given an opportunity to ask questions and understood the discharge instructions. Discharge instructions specifically effects, indications for sooner follow up or return to the emergency department, and the expected course of current diagnosis. Patient condition: Stable Discharge Plan Plan Patient Disposition: HOME (Self Care) Disposition Comment: Stable Prescriptions/Referrals Prescriptions/Med Rec: New prednisone 10 mg tablet 30 mg PO BID 3 Days Qty: 18 0RF benzonatate 100 mg capsule 100 mg PO TID Qty: 14 0RF No Action albuterol sulfate [Ventolin HFA] 90 mcg/actuation Hfa Aerosol Inhaler 2 puff INHALATION Q6H PRN (Reason: Dyspnea) albuterol sulfate 90 mcg/actuation HFA aerosol inhaler 2 puff inhalation QID Qty: 8.5 0RF amoxicillin-pot clavulanate [Augmentin] 875-125 mg tablet 1 tab PO BID Qty: 14 0RF prednisone 50 mg tablet 50 mg PO QDAY Qty: 5 0RF fexofenadine-pseudoephedrine [Maggi-D 12 Hour] 60-120 mg tablet extended release 12 hr 1 tab PO Q12H PRN (Reason: sinus symptoms) Qty: 14 0RF albuterol sulfate 90 mcg/actuation HFA aerosol inhaler 2 puff inhalation QID PRN (Reason: shortness of breath or wheezing) Qty: 8.5 0RF azithromycin 250 mg tablet See Rx Instructions .ROUTE .COMPLEX Qty: 6 0RF Rx Instructions: For 250 mg dose pack: take 500 mg today (day 1), then 250 mg for 4 days (days 2-5) sulfamethoxazole-trimethoprim [Bactrim DS] 800-160 mg tablet 1 tab PO Q12H Qty: 14 0RF prednisone 50 mg tablet 50 mg PO QDAY Qty: 5 0RF ibuprofen 800 mg tablet 800 mg PO TID PRN (Reason: pain) Qty: 30 0RF acetaminophen 500 mg capsule 1,000 mg PO Q8HR PRN (Reason: pain) Qty: 30 0RF ondansetron 4 mg tablet,disintegrating 4 mg PO Q8H PRN (Reason: nausea and vomiting) Qty: 10 0RF ibuprofen 600 mg tablet 600 mg PO Q6H PRN (Reason: pain) Qty: 30 0RF acetaminophen [Tylenol Extra Strength] 500 mg tablet 1,000 mg PO Q6H PRN (Reason: pain) Qty: 30 0RF amoxicillin-pot clavulanate 875-125 mg tablet 1 tab PO BID Qty: 10 0RF jraqsgmowx-mjyctdjfdknbb-ortj [Fioricet] 50-300-40 mg capsule 1 cap PO Q6H PRN (Reason: headache) Qty: 20 0RF Daily Probiotic 2.5 billion cell capsule 1 cap PO QDAY Qty: 30 0RF ondansetron 4 mg tablet,disintegrating 4 mg PO Q6H PRN (Reason: nausea and vomiting) Qty: 10 0RF metronidazole 500 mg tablet 500 mg PO BID Qty: 14 0RF dicyclomine 20 mg tablet 20 mg PO BID Qty: 14 0RF ondansetron 4 mg tablet,disintegrating 4 mg PO Q8H Qty: 20 0RF ibuprofen 600 mg tablet 600 mg PO Q8H PRN (Reason: pain) Qty: 20 0RF Problem List Clinical Impression: Influenza B, Asthma exacerbation Patient/Caregiver Discharge Instructions Education Materials: Asthma Additional Instructions: Please follow up with your primary care doctor in the next 24-48hrs for any worsening symptoms return here immediately Print Language: Tamazight Stand Alone Forms: Rebeka Award Info., Work/School Release, Patient Portal Info Letter PA/STOREPERSON Supervising Physician PA/STOREPERSON Supervising Physician: Dr. Logan
== END 2024-06-15 14:35 | disposition home or self-care (01) ==
LOC: SERX 15:50
PROVIDERS: Emergency Provider Emergency Medicine
DX: J45.901 Unspecified asthma with (acute) exacerbation (principal); J10.1 Influenza due to other identified influenza virus with other respiratory manifestations
CPT/HCPCS: 71046; 87400; 94640; 99283; J1100; A9270

== ENCOUNTER → 2024-07-23 | Outpatient (CLI) | payer MEDICAID, SELFPAY ==
--- NOTE | 2024-07-23 08:15 | XR_ITS ---
Examination: Screening digital mammography, bilateral Computer aided detection 3-D breast Tomosynthesis, bilateral Date and time of exam: July 23, 2024 2058 hours Indication: Screening Technique: Nonmagnified MLO, CC views of the breasts to been obtained, reconstructed from 3-D Tomosynthesis images. R2 computer aided detection program utilized for evaluation of suspicious masses and/or abnormal calcifications. 3-D Tomosynthesis images obtained. Findings: The breasts are heterogeneously dense, which may obscure small masses 14 mm focal asymmetry retroareolar region left breast Impression: BI-RADS Category 0: Incomplete: Need additional imaging evaluation 14 mm focal asymmetry retroareolar region left breast, recommend follow-up spot tomographic views of this asymmetry as well as left breast sonography to complete the workup.
== END | disposition home or self-care (01) ==
LOC: CDIM 08:22
PROVIDERS: Referring Provider Physician Assistant; Visit Provider Physician Assistant
DX: Z12.31 Encounter for screening mammogram for malignant neoplasm of breast (principal); R92.8 Other abnormal and inconclusive findings on diagnostic imaging of breast; N64.89 Other specified disorders of breast
CPT/HCPCS: 77063; 77067

== ENCOUNTER 2024-11-05 23:18 | Emergency (ER) | payer MEDICAID, SELFPAY ==
[2024-11-05 23:22] VITALS: BMI 31.3
[2024-11-05 23:34] VITALS: BP 148/80; PULSE 80; RESP 17; TEMP 37.2; O2SAT 98
--- NOTE | 2024-11-06 00:08 | PD.EDURI ---
Upper Respiratory Inf. RME/HPI General Chief Complaint: General Adult/Misc Complain Stated Complaint: PALPITATIONS, FEVER, CONGESTIONS Time Seen by Provider: 11/06/24 00:01 Arrival date/time: 11/05/24 23:18 39F with history of asthma presents to ED with 2 days of cough, fevers/chills, nasal congestion, sore throat, and body aches. Limitations: no limitations Related Data Home Medications ?Medication ?Instructions ?Recorded ?Confirmed albuterol sulfate 90 mcg/actuation 2 puff inhalation Q6H PRN Dyspnea 03/13/21 03/13/21 aerosol inhaler (Ventolin HFA) Previous Rx's ?Medication ?Instructions ?Recorded albuterol sulfate 90 mcg/actuation 2 puff inhalation QID #8.5 grams 03/14/21 aerosol inhaler albuterol sulfate 90 mcg/actuation 2 puff inhalation QID PRN 05/17/21 aerosol inhaler shortness of breath or wheezing #8.5 grams azithromycin 250 mg tablet See Rx Instructions PO .COMPLEX #6 05/17/21 tabs amoxicillin 875 mg-potassium 1 tab PO BID #14 tabs 05/26/21 clavulanate 125 mg tablet (Augmentin) fexofenadine 60 mg-pseudoephedrine 1 tab PO Q12H PRN sinus symptoms 05/26/21 ER 120 mg tablet,ext.release,12 hr #14 tabs (Maggi-D 12 Hour) prednisone 50 mg tablet 50 mg PO QDAY #5 tabs 05/26/21 sulfamethoxazole 800 1 tab PO Q12H #14 tabs 10/20/22 mg-trimethoprim 160 mg tablet (Bactrim DS) prednisone 50 mg tablet 50 mg PO QDAY #5 tabs 11/12/22 Lactobacillus 1 cap PO QDAY #30 caps 03/15/23 acidophilus-Bifidobac.animalis 2.5 billion cell capsule (Daily Probiotic) stnuujbxtg-axqlcumgqohje-fijgqrjm 1 cap PO Q6H PRN headache #20 caps 03/15/23 50 mg-300 mg-40 mg capsule (Fioricet) ondansetron 4 mg disintegrating 4 mg PO Q6H PRN nausea and 03/15/23 tablet vomiting #10 tabs dicyclomine 20 mg tablet 20 mg PO BID #14 tabs 03/26/23 metronidazole 500 mg tablet 500 mg PO BID #14 tabs 03/26/23 ondansetron 4 mg disintegrating 4 mg PO Q8H #20 tabs 03/26/23 tablet acetaminophen 500 mg capsule 1,000 mg (2 x 500 mg) PO Q8HR PRN 05/06/23 pain #30 caps ibuprofen 800 mg tablet 800 mg PO TID PRN pain #30 tabs 05/06/23 ondansetron 4 mg disintegrating 4 mg PO Q8H PRN nausea and 05/06/23 tablet vomiting #10 tabs ibuprofen 600 mg tablet 600 mg PO Q8H PRN pain #20 tabs 03/09/24 acetaminophen 500 mg tablet 1,000 mg (2 x 500 mg) PO Q6H PRN 04/10/24 (Tylenol Extra Strength) pain #30 tabs ibuprofen 600 mg tablet 600 mg PO Q6H PRN pain #30 tabs 04/10/24 amoxicillin 875 mg-potassium 1 tab PO BID #10 tabs 04/23/24 clavulanate 125 mg tablet benzonatate 100 mg capsule 100 mg PO TID #14 caps 06/15/24 Allergies Allergy/AdvReac Type Severity Reaction Status Date / Time ciprofloxacin Allergy Severe itching Verified 06/15/24 11:46 Review of Systems Review of Systems Systems Reviewed: All systems reviewed, normal except as documented Constitutional Constitutional: Reports system reviewed and no additional complaints, except as documented, Reports as per HPI, Reports body ache(s), Reports chills, Reports fever(s) and Denies headache(s) ENT Ears, Nose, Mouth, and Throat: Reports as per HPI, Denies disequilibrium, Denies headache(s) and Reports sore throat Cardiovascular Cardiovascular: Reports system reviewed and no additional complaints, except as documented, Denies chest pain and Denies dyspnea Respiratory Respiratory: Reports system reviewed and no additional complaints, except as documented, Reports as per HPI, Reports cough and Denies dyspnea Gastrointestinal Gastrointestinal: Reports system reviewed and no additional complaints, except as documented, Denies abdominal pain, Denies nausea and Denies vomiting Neurologic Neurologic: Reports system reviewed and no additional complaints, except as documented, Denies confusion, Denies disequilibrium and Denies headache(s) Psychiatric Psychiatric: Denies confusion Past Medical History Past Medical History NEUROLOGIC: Positive Migraine; Negative Neurological Disorders CARDIAC: Negative Cardiac Disorders or Congestive Heart Failure RESPIRATORY: Positive Asthma; Negative Chronic Obstructive Pulmonary Disease (COPD) GASTROINTESTINAL: Positive Gall Bladder Disease; Negative Gastrointestinal Disorders GENITOURINARY: Negative Genitourinary Disorders or Renal Disease REPRODUCTIVE: Positive Previous Pregnancies; Negative Breast Cancer MUSCULOSKELETAL: Negative Musculoskeletal Disorders ENDOCRINE: Negative Endocrine Disorders, Diabetes Mellitus Type 1 or Diabetes Mellitus Type 2 HEMATOLOGIC: Negative Blood Disorders or Sickle Cell Disease OTHER HISTORY: Positive Blood Transfusions and Chicken Pox; Negative Autoimmune Disease, Blood Transfusion Reaction, Organ Transplant, MRSA, Clostridium Difficile or Breast Cancer Family History FAMILY HISTORY: Positive Family Respiratory Disorders, Family Cardiac Disorders, Family Gastrointestinal Problems and Family Surgery; Negative Family Psychiatric Problems, Family Cancer or Family Anesthesia Reaction Surgical History SURGICAL: Positive Abdominal Surgery, Tubal Ligation and Section; Negative Cardiac Surgery, Endocrine Surgery, Ear Surgery or Organ Transplant Social History SMOKING STATUS: Never smoker SUBSTANCE USE: does not use ED Exam General Limitations: Present no limitations General appearance: Present alert and in no apparent distress Head Head exam: Present atraumatic Eye Eye exam: Present normal appearance, PERRL and EOMI ENT ENT exam: Present mucous membranes moist Expanded ENT Exam Throat exam: Present tonsillar erythema; Absent tonsillomegaly, tonsillar exudate, R peritonsillar mass, L peritonsillar mass or muffled voice Neck Neck exam: Present normal inspection, full ROM and trachea midline Chest Chest inspection: Present normal inspection and symmetric chest wall rise Respiratory Respiratory exam: Present normal lung sounds bilaterally Cardiovascular Cardiovascular exam: Present regular rate, normal rhythm and normal heart sounds Abdominal Exam Abdominal exam: Present soft and normal bowel sounds Extremities Exam Extremities exam: Present normal inspection and full ROM Back Exam Back exam: Present normal inspection and full ROM Neurological Exam Neurological exam: Present alert, oriented X3 and CN II-XII intact Psychiatric Psychiatric exam: Present normal affect and normal mood Skin Skin exam: Present warm, dry, intact and normal color Course Quality Measures none Orders Category Date Time Status Bedside COVID-19 Antigen Test NOW Care 11/06/24 00:02 Active Bedside Influenza A&B Antigen Test NOW Care 11/06/24 00:02 Active Strep A Rapid Stat Lab 11/06/24 00:28 Completed Dexamethasone Inj [Decadron Inj] Med 11/06/24 00:08 Discontinued 10 mg PO X1 ONE HYDROcodone*/APAP 5/325 [Skippers 5/325] Med 11/06/24 00:08 Discontinued 1 tab PO X1 ONE Ketorolac Inj [Toradol Inj] Med 11/06/24 00:02 Discontinued 60 mg IM X1 ONE Vital Signs Vital signs: Vital Signs Temperature 99.0 F 11/05/24 23:34 Pulse Rate 80 11/05/24 23:34 Respiratory Rate 17 11/05/24 23:34 Blood Pressure 148/80 H 11/05/24 23:34 Pulse Oximetry (%) 98 11/05/24 23:34 Oxygen Delivery Method Room Air 11/05/24 23:34 O2 at 98% on RA and WNLs Upper Respiratory Infection MDM Narrative MDM Narrative:: 39F with history of asthma presents to ED with 2 days of cough, fevers/chills, nasal congestion, sore throat, and body aches. Physical exam reveals red oropharynx, but clear lungs. Mildly prolonged expiration. Patient is afebrile, calm, and alert. Swasb neg. Meds and counselor nurses' association given. Patient data External records reviewed:: [facility] previous records Clinical information provided by:: patient Social determinants that could affect healthcare access:: none Patient has the following chronic illnesses:: asthma How is presenting disease/condition affected by chronic disease/condition?: exacerbated by Evaluation data The following diagnostics were reviewed and interpreted by me:: lab results Lab and/or radiology exams considered but not ordered:: ordered Interpretation Summary: above Medications / Prescriptions Medications or Prescriptions considered but not ordered:: ordered Medication administrations:: Medication Administration History Discontinued Medications Hydrocodone Bitart/Acetaminophen (Hydrocodone/Apap 5/325 Tablet) 1 tab PO X1 ONE Stop: 11/06/24 00:09 Last Admin: 11/06/24 00:27 Dose: 1 tab Documented By: Dexamethasone Sodium Phosphate (Dexamethasone Sod Phos Inj 10 Mg/Ml Vial) 10 mg PO X1 ONE Stop: 11/06/24 00:09 Last Admin: 11/06/24 00:26 Dose: 10 mg Documented By: Ketorolac Tromethamine (Ketorolac Inj 60 Mg/2 Ml Vial) 60 mg IM X1 ONE Stop: 11/06/24 00:03 Last Admin: 11/06/24 00:28 Dose: Not Given Documented By: Non-Admin Reason: Cancelled by Provider above Consultations Consultation(s) initiated? (list below): No Diagnosis Upper Respiratory Differential Diagnosis: upper respiratory infection, croup, otitis media, sinusitis, viral infection, bronchitis, influenza and pharyngitis Most likely diagnosis given after review of the tests above:: URI Admission Indicated Admission indicated?: not indicated Admission Request Was there a request for admission?: No Disposition Plan Disposition Plan: Discharge Discharge Attestation Discharge Attestation: The patient and all family members were given an opportunity to ask questions and understood the discharge instructions. Discharge instructions specifically effects, indications for sooner follow up or return to the emergency department, and the expected course of current diagnosis. Patient condition: Stable Discharge Plan Plan Patient Disposition: HOME (Self Care) Discharge Disposition comment: Stable Prescriptions/Referrals Prescriptions/Med Rec: No Action albuterol sulfate [Ventolin HFA] 90 mcg/actuation Hfa Aerosol Inhaler 2 puff INHALATION Q6H PRN (Reason: Dyspnea) albuterol sulfate 90 mcg/actuation HFA aerosol inhaler 2 puff inhalation QID Qty: 8.5 0RF amoxicillin-pot clavulanate [Augmentin] 875-125 mg tablet 1 tab PO BID Qty: 14 0RF prednisone 50 mg tablet 50 mg PO QDAY Qty: 5 0RF fexofenadine-pseudoephedrine [Maggi-D 12 Hour] 60-120 mg tablet extended release 12 hr 1 tab PO Q12H PRN (Reason: sinus symptoms) Qty: 14 0RF albuterol sulfate 90 mcg/actuation HFA aerosol inhaler 2 puff inhalation QID PRN (Reason: shortness of breath or wheezing) Qty: 8.5 0RF azithromycin 250 mg tablet See Rx Instructions .ROUTE .COMPLEX Qty: 6 0RF Rx Instructions: For 250 mg dose pack: take 500 mg today (day 1), then 250 mg for 4 days (days 2-5) sulfamethoxazole-trimethoprim [Bactrim DS] 800-160 mg tablet 1 tab PO Q12H Qty: 14 0RF prednisone 50 mg tablet 50 mg PO QDAY Qty: 5 0RF ibuprofen 800 mg tablet 800 mg PO TID PRN (Reason: pain) Qty: 30 0RF acetaminophen 500 mg capsule 1,000 mg PO Q8HR PRN (Reason: pain) Qty: 30 0RF ondansetron 4 mg tablet,disintegrating 4 mg PO Q8H PRN (Reason: nausea and vomiting) Qty: 10 0RF ibuprofen 600 mg tablet 600 mg PO Q6H PRN (Reason: pain) Qty: 30 0RF acetaminophen [Tylenol Extra Strength] 500 mg tablet 1,000 mg PO Q6H PRN (Reason: pain) Qty: 30 0RF amoxicillin-pot clavulanate 875-125 mg tablet 1 tab PO BID Qty: 10 0RF benzonatate 100 mg capsule 100 mg PO TID Qty: 14 0RF yzqysmrdvw-keiorpmgfcnia-zkjk [Fioricet] 50-300-40 mg capsule 1 cap PO Q6H PRN (Reason: headache) Qty: 20 0RF Daily Probiotic 2.5 billion cell capsule 1 cap PO QDAY Qty: 30 0RF ondansetron 4 mg tablet,disintegrating 4 mg PO Q6H PRN (Reason: nausea and vomiting) Qty: 10 0RF metronidazole 500 mg tablet 500 mg PO BID Qty: 14 0RF dicyclomine 20 mg tablet 20 mg PO BID Qty: 14 0RF ondansetron 4 mg tablet,disintegrating 4 mg PO Q8H Qty: 20 0RF ibuprofen 600 mg tablet 600 mg PO Q8H PRN (Reason: pain) Qty: 20 0RF Problem List Clinical Impression: URI (upper respiratory infection) Patient/Caregiver Discharge Instructions Education Materials: ED URI, Viral, No Abx (Adult) Additional Instructions: Please follow-up with PCP within 24-48 hours and return immediately if symptoms worsen. Ibuprofen/Tylenol can be used simultaneously for greater fever/pain control. Benadryl is good for cough, congestion, and sleep. Print Language: Swedish Stand Alone Forms: Patient Portal Info Letter PA/POLLUTION CONTROL TECHNICIAN Supervising Physician KHADIJAH/KAMLESH Supervising Physician: Dr. Jack
[2024-11-06] MEDS: DEXAMETHASONE SOD PHOS INJ 10 MG/ML VIAL PO (00:26)
[2024-11-06] MEDS: HYDROcodone/APAP 5/325 TABLET 1 TAB PO (00:27)
[2024-11-06 00:50] LABS: Strep A Rapid Negative (Negative)
[2024-11-06 01:33] VITALS: RESP 18
== END 2024-11-06 01:33 | disposition home or self-care (01) ==
LOC: SERX 11-06 02:19
PROVIDERS: Physician Assistant; Emergency Provider Emergency Medicine; PCP Physician Assistant
DX: J06.9 Acute upper respiratory infection, unspecified (principal); J45.909 Unspecified asthma, uncomplicated
CPT/HCPCS: 87400; 87651; 87811; 99283; J1100; A9270

== ENCOUNTER 2024-11-14 21:23 | Emergency (ER) | payer MEDICAID, SELFPAY ==
[2024-11-14 21:24] VITALS: BMI 31.3
[2024-11-14 21:30] VITALS: BP 133/85; PULSE 106; RESP 18; TEMP 37.1; O2SAT 99
--- NOTE | 2024-11-14 21:38 | PD.EDDENTL ---
ED Dental RME/HPI General Chief complaint: Dental/Oral/Throat Stated complaint: DIFFICULTY SWALLOWING FOOD Time Seen by Provider: 11/14/24 21:30 Arrival date/time: 11/14/24 21:23 RME / HPI RME / HPI Narrative: 39-year-old female patient came in for evaluation regarding sore throat. She is having sore throat for the last 2 days, described as painful swallowing, severity moderate. Patient denies any cough denies any shortness of breath denies any fever denies any other complaints no medication was taken prior travel. Related Data Home Medications ?Medication ?Instructions ?Recorded ?Confirmed albuterol sulfate 90 mcg/actuation 2 puff inhalation Q6H PRN Dyspnea 03/13/21 03/13/21 aerosol inhaler (Ventolin HFA) Previous Rx's ?Medication ?Instructions ?Recorded albuterol sulfate 90 mcg/actuation 2 puff inhalation QID #8.5 grams 03/14/21 aerosol inhaler albuterol sulfate 90 mcg/actuation 2 puff inhalation QID PRN 05/17/21 aerosol inhaler shortness of breath or wheezing #8.5 grams azithromycin 250 mg tablet See Rx Instructions PO .COMPLEX #6 05/17/21 tabs amoxicillin 875 mg-potassium 1 tab PO BID #14 tabs 05/26/21 clavulanate 125 mg tablet (Augmentin) fexofenadine 60 mg-pseudoephedrine 1 tab PO Q12H PRN sinus symptoms 05/26/21 ER 120 mg tablet,ext.release,12 hr #14 tabs (Maggi-D 12 Hour) prednisone 50 mg tablet 50 mg PO QDAY #5 tabs 05/26/21 sulfamethoxazole 800 1 tab PO Q12H #14 tabs 10/20/22 mg-trimethoprim 160 mg tablet (Bactrim DS) prednisone 50 mg tablet 50 mg PO QDAY #5 tabs 11/12/22 Lactobacillus 1 cap PO QDAY #30 caps 03/15/23 acidophilus-Bifidobac.animalis 2.5 billion cell capsule (Daily Probiotic) rzhnwlamxp-damlskunlbfcn-pjusdlcx 1 cap PO Q6H PRN headache #20 caps 03/15/23 50 mg-300 mg-40 mg capsule (Fioricet) ondansetron 4 mg disintegrating 4 mg PO Q6H PRN nausea and 03/15/23 tablet vomiting #10 tabs dicyclomine 20 mg tablet 20 mg PO BID #14 tabs 03/26/23 metronidazole 500 mg tablet 500 mg PO BID #14 tabs 03/26/23 ondansetron 4 mg disintegrating 4 mg PO Q8H #20 tabs 03/26/23 tablet acetaminophen 500 mg capsule 1,000 mg (2 x 500 mg) PO Q8HR PRN 05/06/23 pain #30 caps ibuprofen 800 mg tablet 800 mg PO TID PRN pain #30 tabs 05/06/23 ondansetron 4 mg disintegrating 4 mg PO Q8H PRN nausea and 05/06/23 tablet vomiting #10 tabs ibuprofen 600 mg tablet 600 mg PO Q8H PRN pain #20 tabs 03/09/24 acetaminophen 500 mg tablet 1,000 mg (2 x 500 mg) PO Q6H PRN 04/10/24 (Tylenol Extra Strength) pain #30 tabs ibuprofen 600 mg tablet 600 mg PO Q6H PRN pain #30 tabs 04/10/24 amoxicillin 875 mg-potassium 1 tab PO BID #10 tabs 04/23/24 clavulanate 125 mg tablet benzonatate 100 mg capsule 100 mg PO TID #14 caps 06/15/24 Allergies Allergy/AdvReac Type Severity Reaction Status Date / Time ciprofloxacin Allergy Severe itching Verified 06/15/24 11:46 Review of Systems Review of Systems Narrative Review of Systems: Review of system reviewed and within normal limits except mentioned in HPI ED Exam Narrative Physical exam: VITAL SIGNS: Reviewed. GENERAL APPEARANCE: Alert and interactive, follows commands, no acute distress, HEAD AND FACE: Non-traumatic. ENT: PERRL, pink conjunctivitis, eyelid no trauma, Mucous membrane moist., Uvula in the midline no swelling exudates in the tonsils. No peritonsillar swelling noted CHEST: No tenderness, no crepitus, no paradoxical movement, no retractions. LUNGS: Clear, well ventilated, symmetric, no rales, no wheezing, no ronchi, no stridor, good breath sounds bilaterally. HEART: Regular rate, regular rhythm, no murmur, no gallops. ABDOMEN: Soft, positive bowel sounds, nondistended, no guarding, nontender, no rebound, no masses, RECTAL: Deferred. GENITAL: Deferred. NEUROLOGICAL: Gross motor function intact sensory function intact, Appropriate for age. MUSCULOSKELETAL: low back nontender, full range of motion. EXTREMITIES: Nontender, full range of motion. SKIN: Color pink, dry, no rash, no lacerations, no abrasions, no contusions. LYMPHATICS: Deferred. Course Orders Category Date Time Status Strep A Rapid Stat Lab 11/14/24 21:37 Ordered Ibuprofen Tab [Motrin Tab] Med 11/14/24 21:37 Once 800 mg PO X1 ONE Vital Signs Vital signs: Vital Signs Temperature 98.7 F 11/14/24 21:30 Pulse Rate 106 H 11/14/24 21:30 Respiratory Rate 18 11/14/24 21:30 Blood Pressure 133/85 H 11/14/24 21:30 Pulse Oximetry (%) 99 11/14/24 21:30 Oxygen Delivery Method Room Air 11/14/24 21:30 Dental / Oral MDM Narrative MDM Narrative:: 39-year-old female patient came in for evaluation regarding sore throat. She is having sore throat for the last 2 days, described as painful swallowing, severity moderate. Patient denies any cough denies any shortness of breath denies any fever denies any other complaints no medication was taken prior travel. Discharge Plan Prescriptions/Referrals Prescriptions/Med Rec: No Action albuterol sulfate [Ventolin HFA] 90 mcg/actuation Hfa Aerosol Inhaler 2 puff INHALATION Q6H PRN (Reason: Dyspnea) albuterol sulfate 90 mcg/actuation HFA aerosol inhaler 2 puff inhalation QID Qty: 8.5 0RF amoxicillin-pot clavulanate [Augmentin] 875-125 mg tablet 1 tab PO BID Qty: 14 0RF prednisone 50 mg tablet 50 mg PO QDAY Qty: 5 0RF fexofenadine-pseudoephedrine [Maggi-D 12 Hour] 60-120 mg tablet extended release 12 hr 1 tab PO Q12H PRN (Reason: sinus symptoms) Qty: 14 0RF albuterol sulfate 90 mcg/actuation HFA aerosol inhaler 2 puff inhalation QID PRN (Reason: shortness of breath or wheezing) Qty: 8.5 0RF azithromycin 250 mg tablet See Rx Instructions .ROUTE .COMPLEX Qty: 6 0RF Rx Instructions: For 250 mg dose pack: take 500 mg today (day 1), then 250 mg for 4 days (days 2-5) sulfamethoxazole-trimethoprim [Bactrim DS] 800-160 mg tablet 1 tab PO Q12H Qty: 14 0RF prednisone 50 mg tablet 50 mg PO QDAY Qty: 5 0RF ibuprofen 800 mg tablet 800 mg PO TID PRN (Reason: pain) Qty: 30 0RF acetaminophen 500 mg capsule 1,000 mg PO Q8HR PRN (Reason: pain) Qty: 30 0RF ondansetron 4 mg tablet,disintegrating 4 mg PO Q8H PRN (Reason: nausea and vomiting) Qty: 10 0RF ibuprofen 600 mg tablet 600 mg PO Q6H PRN (Reason: pain) Qty: 30 0RF acetaminophen [Tylenol Extra Strength] 500 mg tablet 1,000 mg PO Q6H PRN (Reason: pain) Qty: 30 0RF amoxicillin-pot clavulanate 875-125 mg tablet 1 tab PO BID Qty: 10 0RF benzonatate 100 mg capsule 100 mg PO TID Qty: 14 0RF gvakccmwdg-egjtbynkvrouy-owec [Fioricet] 50-300-40 mg capsule 1 cap PO Q6H PRN (Reason: headache) Qty: 20 0RF Daily Probiotic 2.5 billion cell capsule 1 cap PO QDAY Qty: 30 0RF ondansetron 4 mg tablet,disintegrating 4 mg PO Q6H PRN (Reason: nausea and vomiting) Qty: 10 0RF metronidazole 500 mg tablet 500 mg PO BID Qty: 14 0RF dicyclomine 20 mg tablet 20 mg PO BID Qty: 14 0RF ondansetron 4 mg tablet,disintegrating 4 mg PO Q8H Qty: 20 0RF ibuprofen 600 mg tablet 600 mg PO Q8H PRN (Reason: pain) Qty: 20 0RF Patient/Caregiver Discharge Instructions Print Language: Romanian
[2024-11-14] MEDS: IBUPROFEN TAB 400 MG TABLET 800 MG PO (22:08)
[2024-11-14 22:46] LABS: Strep A Rapid Negative (Negative)
--- NOTE | 2024-11-14 22:50 | XR_ITS ---
Examination: AP lateral soft tissue neck 2 views TECHNIQUE: AP lateral soft tissue neck 2 views Date and time: November 15, 2024, 1215 hours INDICATIONS: Difficulty swallowing with sore throat beginning 2 days ago FINDINGS: Epiglottis is poorly visualized No definite prevertebral soft tissue prominence Satisfactory alignment cervical vertebral bodies IMPRESSION: Limited study No definite thickening of the epiglottis If symptoms persist, consider CT soft tissue neck with intravenous contrast follow-up
--- NOTE | 2024-11-14 22:51 | EDRME_ITS ---
Rapid Medical Screening Exam [facility] Arrival date/time: 11/14/24 21:23 39-year-old female patient came in for evaluation regarding sore throat. She is having sore throat for the last 2 days, described as painful swallowing, severity moderate. Patient denies any cough denies any shortness of breath ede es any fever denies any other complaints no medication was taken prior travel. Chief Complaint: Dental/Oral/Throat Time Seen by Provider: 11/14/24 21:30 Vital signs: Vital Signs Temperature 98.7 F 11/14/24 21:30 Pulse Rate 106 H 11/14/24 21:30 Respiratory Rate 18 11/14/24 21:30 Blood Pressure 133/85 H 11/14/24 21:30 Pulse Oximetry (%) 99 11/14/24 21:30 Oxygen Delivery Method Room Air 11/14/24 21:30 [facility] Narrative: 39-year-old female patient came in for evaluation regarding sore throat. She is having sore throat for the last 2 days, described as painful swallowing, severity moderate. Patient denies any cough denies any shortness of breath denies any fever denies any other complaints no medication was taken prior travel.
--- NOTE | 2024-11-14 23:38 | PD.EDADULT ---
ED General RME/HPI General Chief complaint: Dental/Oral/Throat Stated complaint: DIFFICULTY SWALLOWING FOOD Time Seen by Provider: 11/14/24 21:30 Arrival date/time: 11/14/24 21:23 39-year-old female with a past medical history of asthma and symptoms of gastroesophageal reflux disease presents to the ED with difficulty swallowing solid foods for the past several weeks. It has progressively become worse over the past 2 days. She has tried Tums without relief. She has no difficulty with oral secretions, liquids, or soft foods including yogurt, Jell-O, pudding, etc. however when she eats any type of solid food she has difficulty, feeling like it gets stuck in her throat. She denies any recent illness with fever, chills, cough, upper respiratory complaints, nausea or vomiting, diarrhea or abdominal pain. RME / HPI RME / HPI narrative: 39-year-old female patient came in for evaluation regarding sore throat. She is having sore throat for the last 2 days, described as painful swallowing, severity moderate. Patient denies any cough denies any shortness of breath denies any fever denies any other complaints no medication was taken prior travel. Related Data Home Medications ?Medication ?Instructions ?Recorded ?Confirmed albuterol sulfate 90 mcg/actuation 2 puff inhalation Q6H PRN Dyspnea 03/13/21 03/13/21 aerosol inhaler (Ventolin HFA) Previous Rx's ?Medication ?Instructions ?Recorded albuterol sulfate 90 mcg/actuation 2 puff inhalation QID #8.5 grams 03/14/21 aerosol inhaler albuterol sulfate 90 mcg/actuation 2 puff inhalation QID PRN 05/17/21 aerosol inhaler shortness of breath or wheezing #8.5 grams azithromycin 250 mg tablet See Rx Instructions PO .COMPLEX #6 05/17/21 tabs amoxicillin 875 mg-potassium 1 tab PO BID #14 tabs 05/26/21 clavulanate 125 mg tablet (Augmentin) fexofenadine 60 mg-pseudoephedrine 1 tab PO Q12H PRN sinus symptoms 05/26/21 ER 120 mg tablet,ext.release,12 hr #14 tabs (Maggi-D 12 Hour) prednisone 50 mg tablet 50 mg PO QDAY #5 tabs 05/26/21 sulfamethoxazole 800 1 tab PO Q12H #14 tabs 06/24/23 mg-trimethoprim 160 mg tablet (Bactrim DS) prednisone 50 mg tablet 50 mg PO QDAY #5 tabs 11/12/22 Lactobacillus 1 cap PO QDAY #30 caps 03/15/23 acidophilus-Bifidobac.animalis 2.5 billion cell capsule (Daily Probiotic) pvfzxyusbk-inkrcopbezyez-xmioxvtd 1 cap PO Q6H PRN headache #20 caps 03/15/23 50 mg-300 mg-40 mg capsule (Fioricet) ondansetron 4 mg disintegrating 4 mg PO Q6H PRN nausea and 03/15/23 tablet vomiting #10 tabs dicyclomine 20 mg tablet 20 mg PO BID #14 tabs 03/26/23 metronidazole 500 mg tablet 500 mg PO BID #14 tabs 03/26/23 ondansetron 4 mg disintegrating 4 mg PO Q8H #20 tabs 03/26/23 tablet acetaminophen 500 mg capsule 1,000 mg (2 x 500 mg) PO Q8HR PRN 05/06/23 pain #30 caps ibuprofen 800 mg tablet 800 mg PO TID PRN pain #30 tabs 05/06/23 ondansetron 4 mg disintegrating 4 mg PO Q8H PRN nausea and 05/06/23 tablet vomiting #10 tabs ibuprofen 600 mg tablet 600 mg PO Q8H PRN pain #20 tabs 03/09/24 acetaminophen 500 mg tablet 1,000 mg (2 x 500 mg) PO Q6H PRN 04/10/24 (Tylenol Extra Strength) pain #30 tabs ibuprofen 600 mg tablet 600 mg PO Q6H PRN pain #30 tabs 04/10/24 amoxicillin 875 mg-potassium 1 tab PO BID #10 tabs 04/23/24 clavulanate 125 mg tablet benzonatate 100 mg capsule 100 mg PO TID #14 caps 06/15/24 pantoprazole 40 mg tablet,delayed 40 mg PO QDAY #30 tabs 11/15/24 release (Protonix) Allergies Allergy/AdvReac Type Severity Reaction Status Date / Time ciprofloxacin Allergy Severe itching Verified 06/15/24 11:46 Review of Systems Review of Systems Systems Reviewed: All systems reviewed, normal except as documented Past Medical History Past Medical History NEUROLOGIC: Positive Migraine; Negative Neurological Disorders CARDIAC: Negative Cardiac Disorders or Congestive Heart Failure RESPIRATORY: Positive Asthma; Negative Chronic Obstructive Pulmonary Disease (COPD) GASTROINTESTINAL: Positive Gall Bladder Disease; Negative Gastrointestinal Disorders GENITOURINARY: Negative Genitourinary Disorders or Renal Disease REPRODUCTIVE: Positive Previous Pregnancies; Negative Breast Cancer MUSCULOSKELETAL: Negative Musculoskeletal Disorders ENDOCRINE: Negative Endocrine Disorders, Diabetes Mellitus Type 1 or Diabetes Mellitus Type 2 HEMATOLOGIC: Negative Blood Disorders or Sickle Cell Disease OTHER HISTORY: Positive Blood Transfusions and Chicken Pox; Negative Autoimmune Disease, Blood Transfusion Reaction, Organ Transplant, MRSA, Clostridium Difficile or Breast Cancer Family History FAMILY HISTORY: Positive Family Respiratory Disorders, Family Cardiac Disorders, Family Gastrointestinal Problems and Family Surgery; Negative Family Psychiatric Problems, Family Cancer or Family Anesthesia Reaction Surgical History SURGICAL: Positive Abdominal Surgery, Tubal Ligation and Section; Negative Cardiac Surgery, Endocrine Surgery, Ear Surgery or Organ Transplant Social History SMOKING STATUS: Never smoker SUBSTANCE USE: does not use ED Exam Narrative Physical exam: A&O, afebrile and non-toxic appearing 39-year-old female, no acute distress. Neck is supple, no adenopathy. No stridor noted. TMs and pharynx are without erythema. Oropharynx is without masses. Lungs are clear, RRR, Abdomen is soft with mild epigastric tenderness only, non-distended and no rebound or guarding. Moves all extremities well. Course Course Course Narrative: Patient was initially given ibuprofen 800 mg p.o. A rapid strep test was performed and is negative. Patient was given a GI cocktail of viscous lidocaine 15 mL with Maalox 30 mL p.o. She was also given pantoprazole 40 mg p.o. Soft tissue x-ray of the neck obtained while in RME. Preliminary reading of the soft tissue neck x-ray reveals questionable mass in the neck/trachea. Discussed x-rays with Dr. Carey who would like CT of the neck with contrast performed to rule out neck mass. CBC, CMP and serum hCG was obtained and an IV inserted. CBC abnormalities reveal an H&H of 11.4/35.3 with normal platelets. CMP reveals a minimally elevated chloride of 109, minimally low BUN of 7, corrected calcium of 8.4, calcium of 8.4, normal LFTs and normal renal function. Serum hCG is negative. CT of the neck with IV contrast reveals no pathologic neck mass and no cervical lymphadenopathy, per Temo Bergeron on [employer]. Quality Measures none Orders Category Date Time Status CT Screening NOW Care 11/15/24 01:[address] Screening X1 Care 11/15/24 01:26 Active IV [Insert IV] NOW Care 11/15/24 01:[address] soft tissue neck w con Stat Exams 11/15/24 01:26 Taken XR soft tissue neck Stat Exams 11/14/24 22:50 Taken CBC Stat Lab 11/15/24 01:34 Completed CMP [Comprehensive Metabolic Panel] Stat Lab 11/15/24 01:34 Completed HCG,Qualitative Serum Stat Lab 11/15/24 01:34 Completed Strep A Rapid Stat Lab 11/14/24 21:40 Completed Ibuprofen Tab [Motrin Tab] Med 11/14/24 21:37 Discontinued 800 mg PO X1 ONE Lidocaine 2% Viscous [Xylocaine 2% Viscous] Med 11/14/24 23:42 Discontinued 15 ml PO X1 ONE Pantoprazole [Protonix] Med 11/14/24 23:42 Discontinued 40 mg PO X1 ONE mg Hyd/Al Hyd/Myles Susp [Maalox Susp] Med 11/14/24 23:42 Discontinued 30 ml PO X1 ONE Vital Signs Vital signs: Vital Signs Temperature 98.7 F 11/14/24 21:30 Pulse Rate 106 H 11/14/24 21:30 Respiratory Rate 18 11/14/24 21:30 Blood Pressure 133/85 H 11/14/24 21:30 Pulse Oximetry (%) 99 11/14/24 21:30 Oxygen Delivery Method Room Air 11/14/24 21:30 Discharge Plan Plan Patient Disposition: HOME (Self Care) Discharge Disposition comment: Stable and improved Prescriptions/Referrals Prescriptions/Med Rec: New pantoprazole [Protonix] 40 mg tablet,delayed release (DR/EC) 40 mg PO QDAY Qty: 30 0RF No Action albuterol sulfate [Ventolin HFA] 90 mcg/actuation Hfa Aerosol Inhaler 2 puff INHALATION Q6H PRN (Reason: Dyspnea) albuterol sulfate 90 mcg/actuation HFA aerosol inhaler 2 puff inhalation QID Qty: 8.5 0RF amoxicillin-pot clavulanate [Augmentin] 875-125 mg tablet 1 tab PO BID Qty: 14 0RF prednisone 50 mg tablet 50 mg PO QDAY Qty: 5 0RF fexofenadine-pseudoephedrine [Maggi-D 12 Hour] 60-120 mg tablet extended release 12 hr 1 tab PO Q12H PRN (Reason: sinus symptoms) Qty: 14 0RF albuterol sulfate 90 mcg/actuation HFA aerosol inhaler 2 puff inhalation QID PRN (Reason: shortness of breath or wheezing) Qty: 8.5 0RF azithromycin 250 mg tablet See Rx Instructions .ROUTE .COMPLEX Qty: 6 0RF Rx Instructions: For 250 mg dose pack: take 500 mg today (day 1), then 250 mg for 4 days (days 2-5) sulfamethoxazole-trimethoprim [Bactrim DS] 800-160 mg tablet 1 tab PO Q12H Qty: 14 0RF prednisone 50 mg tablet 50 mg PO QDAY Qty: 5 0RF ibuprofen 800 mg tablet 800 mg PO TID PRN (Reason: pain) Qty: 30 0RF acetaminophen 500 mg capsule 1,000 mg PO Q8HR PRN (Reason: pain) Qty: 30 0RF ondansetron 4 mg tablet,disintegrating 4 mg PO Q8H PRN (Reason: nausea and vomiting) Qty: 10 0RF ibuprofen 600 mg tablet 600 mg PO Q6H PRN (Reason: pain) Qty: 30 0RF acetaminophen [Tylenol Extra Strength] 500 mg tablet 1,000 mg PO Q6H PRN (Reason: pain) Qty: 30 0RF amoxicillin-pot clavulanate 875-125 mg tablet 1 tab PO BID Qty: 10 0RF benzonatate 100 mg capsule 100 mg PO TID Qty: 14 0RF uwloarmcvv-ivovfibvwwues-xszi [Fioricet] 50-300-40 mg capsule 1 cap PO Q6H PRN (Reason: headache) Qty: 20 0RF Daily Probiotic 2.5 billion cell capsule 1 cap PO QDAY Qty: 30 0RF ondansetron 4 mg tablet,disintegrating 4 mg PO Q6H PRN (Reason: nausea and vomiting) Qty: 10 0RF metronidazole 500 mg tablet 500 mg PO BID Qty: 14 0RF dicyclomine 20 mg tablet 20 mg PO BID Qty: 14 0RF ondansetron 4 mg tablet,disintegrating 4 mg PO Q8H Qty: 20 0RF ibuprofen 600 mg tablet 600 mg PO Q8H PRN (Reason: pain) Qty: 20 0RF Referrals: [place], PA-C [Primary Care Provider] - In 1 week Problem List Clinical Impression: Difficulty swallowing solids, H/O gastroesophageal reflux (GERD) Patient/Caregiver Discharge Instructions Education Materials: Dysphagia Diet- Managing Foods, ED Dysphagia (Adult) Additional Instructions: Follow-up with your primary care physician in 24 to 48 hours. You will need an EGD/endoscopy for further workup and evaluation of your difficulty swallowing solid foods. Return to the ED for any new or worsening symptoms. Print Language: Citizen Of [place] Stand Alone Forms: Rebeka Award Info., Patient Portal Info Letter PA/[employer] DES[employer] ENGINEER Supervising Physician PA/[employer] DESIGN ENGINEER Supervising Physician: Dr. Carey [facility] Medication Administration(s) Medication Administration History Discontinued Medications Al Hydrox/Mg Hydrox/Simethicone (Mg Hyd/Al Hyd/Myles (Maalox Reg) Susp 30 Ml Udc) 30 ml PO X1 ONE Stop: 11/14/24 23:43 Last Admin: 11/14/24 23:55 Dose: 30 ml Documented By: BD Ibuprofen (Ibuprofen Tab 400 Mg Tablet) 800 mg PO X1 ONE Stop: 11/14/24 21:38 Last Admin: 11/14/24 22:08 Dose: 800 mg Documented By: BD Lidocaine HCl (Lidocaine Viscous 2% 15 Ml Udc) 15 ml PO X1 ONE Stop: 11/14/24 23:43 Last Admin: 11/14/24 23:55 Dose: 15 ml Documented By: BD Pantoprazole Sodium (Pantoprazole 40 Mg Tablet) 40 mg PO X1 ONE Stop: 11/14/24 23:43 Last Admin: 11/14/24 23:55 Dose: 40 mg Documented By: BD
[2024-11-14] MEDS: LIDOCAINE VISCOUS 2% 15 ML UDC PO (23:55)
[2024-11-14] MEDS: MG HYD/AL HYD/SIME (Maalox Reg) SUSP 30 ML UDC PO (23:55)
[2024-11-14] MEDS: PANTOPRAZOLE 40 MG TABLET PO (23:55)
--- NOTE | 2024-11-15 01:26 | XR_ITS ---
Examination: CT soft tissue neck, with intravenous contrast. 2-D coronal reconstructions. 2-D sagittal reconstructions. Date and time of exam :November 15, 2024, 0220 hours INDICATIONS: Difficulty swallowing today. CTDI: vol (mGy): 14.9. DLP: (mGycm):394 Technique: 1.25 mm axial sections of the neck of the obtained. Coronal and sagittal reconstructions have been obtained. Intravenous contrast administered 50 cc Isovue 370. Low dose protocols were performed. One or more of the following dose reduction techniques were used; automated exposure control, adjustment of the mA and/or KV according to patient size, use of iterative reconstruction technique. Findings: Maxillary and trochlear No nasopharyngeal or oropharyngeal mass Bilateral carotid triangle lymph nodes, the largest on the left side 16 mm The larynx appears normal Thyroid lobes are not enlarged Normal epiglottis Impression : No oropharyngeal or nasopharyngeal mass Carotid triangle lymphadenopathy as above Given the patient's presentation recommend standard esophagram follow-up
[2024-11-15 01:45] LABS: Basophils # (Auto) 0.0 Thou/mm3 (0.0-0.2); Basophils % (Auto) 0 % (0-2.5); Eosinophils # (Auto) 0.3 Thou/mm3 (0.0-0.5); Eosinophils % (Auto) 4 % (0-10); Hematocrit 35.3 % (36.0-46.0); Hemoglobin 11.4 g/dL (12.0-16.0); Immature Granulocytes Auto 0.03 Thou/mm3 (0.00-0.00); Lymphocytes # (Auto) 2.1 Thou/mm3 (1.0-4.8); Lymphocytes % (Auto) 21 % (10-50); Mean Corpuscular HGB Conc 32.3 g/dl (31.0-37.0); Mean Corpuscular Hemoglobin 25.1 pg (25.0-35.0); Mean Corpuscular Volume 78 fL (80-100); Monocytes # (Auto) 0.5 Thou/mm3 (0.0-0.8); Monocytes % (Auto) 5 % (0-12); Neutrophils # (Auto) 6.7 Thou/mm3 (1.8-7.7); Neutrophils % (Auto) 69 % (37-80); Nucleated Red Blood Cell # 0.00 Thou/mm3 (0.00-0.00); Nucleated Red Blood Cell % 0 /100 WBC (0); Platelet Count 430 Thou/mm3 (140-440); RDW Standard Deviation 42.5 fL (36.4-46.3); Red Blood Count 4.54 Miln/mm3 (4.00-5.20); White Blood Count 9.6 Thou/mm3 (3.6-11.0)
[2024-11-15 02:05] LABS: Alanine Aminotransferase 11 U/L (10-49); Albumin, Serum 4.0 gm/dL (3.5-5.0); Albumin/Globulin Ratio 1.3 (1.2-2.2); Alkaline Phosphatase 80 U/L (46-116); Anion Gap 8 (7-16); Aspartate Amino Transferase 15 U/L (0-34); BUN/Creatinine Ratio 9 Ratio (12-20); Bilirubin,Total 0.3 mg/dL (0.3-1.2); Blood Urea Nitrogen 7 mg/dL (9-23); Calcium 8.4 mg/dL (8.3-10.6); Calcium (Corrected) 8.4 mg/dL (8.5-10.1); Carbon Dioxide 23.8 mMol/L (20.0-31.0); Chloride 109 mMol/L (98-107); Creatinine (Component) 0.8 mg/dL (0.6-1.3); Estimated Creatinine Clearance 107.0 mL/min (>60); Globulin 3.2 gm/dL (2.3-3.5); Glucose 96 mg/dL (74-106); Osmolality,Calculated 279 (275-295); Potassium 3.5 mMol/L (3.4-5.1); Sodium 141 mMol/L (136-145); Total Protein 7.2 gm/dL (5.7-8.2); eGFR > 60 See Note
[2024-11-15 02:07] LABS: HCG,Qualitative Serum Negative
--- NOTE | 2024-11-15 03:58 | PRELIM_ITS ---
CT scan of the neck with intravenous contrast (axial sections with sagittal and coronal reformats). November 15, 2024 0220 hours Clinical History: DIFFICULTY SWALLOWING, ?MASS ON PLAIN FILM Comparison: None Findings: Beam hardening artifact from dental hardware limits evaluation, especially of the oral cavity and oropharynx. Under limitations of study there is no definite worrisome mucosal abnormality of the aerodigestive tract. Vocal cords are symmetric and normal in appearance. Bilateral parotid and submandibular glands as well as thyroid are unremarkable. There is no cervical lymphadenopathy. The major cervical vasculature is intact. Visualized intracranial contents are unremarkable. There is old fracture of the medial wall of the right orbit. There is trace paranasal sinus mucosal thickening. Tympanomastoid cavities are clear. Visualized lung apices are clear. Cervical spine is intact. Impression: The no pathologic neck mass. No cervical lymphadenopathy. Report Electronically Signed By: Temo Bergeron 11/15/2024 3:57:42 AM [EST]
== END 2024-11-15 04:27 | disposition home or self-care (01) ==
PROVIDERS: Nurse Practitioner Family; Physician Assistant; Emergency Provider Emergency Medicine; PCP Physician Assistant
DX: R13.10 Dysphagia, unspecified (principal); K21.9 Gastro-esophageal reflux disease without esophagitis
CPT/HCPCS: 36415; 70360; 70491; 80053; 81025; 84703; 85025; 87651; 99284; A4649; J3490; Q9967; A9270

== ENCOUNTER 2025-01-05 16:52 | Emergency (ER) | payer MEDICAID, SELFPAY ==
[2025-01-05 17:19] VITALS: BP 113/75; PULSE 101; RESP 16; TEMP 37.1; O2SAT 100
--- NOTE | 2025-01-05 17:24 | XR_ITS ---
Examination: PA lateral chest 2 views Technique: Upright PA lateral chest 2 views Date and time: January 05, 2025, 0 7:00 PM., Comparison June 15, 2024. Indications: Left upper chest pain and shortness of breath beginning 2 days ago. Findings: Normal heart size. The lungs are clear. Moderate osteopenia. Impression: No active disease.
--- NOTE | 2025-01-05 17:24 | EKG_ITS ---
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
--- NOTE | 2025-01-05 17:24 | PD.EDRME ---
Rapid Medical Screening Exam RME Arrival date/time: 01/05/25 16:52 39-year-old female with no known medical history presents to the emergency room with a chief complaint of left-sided 7 out of 10 sternal chest pain x 2 days I have greeted and performed a focused initial assessment of this patient. A comprehensive ED assessment and evaluation of the patient, analysis of all test results, and completion of the medical decision making process will be conducted by additional ED providers. Chief Complaint: Chest Pain Time Seen by Provider: 01/05/25 17:09 Vital signs: Vital Signs Temperature 98.8 F 01/05/25 17:19 Pulse Rate 101 H 01/05/25 17:19 Respiratory Rate 16 01/05/25 17:19 Blood Pressure 113/75 01/05/25 17:19 Pulse Oximetry (%) 100 01/05/25 17:19 Oxygen Delivery Method Room Air 01/05/25 17:19 Vital signs reviewed by provider: Yes
[2025-01-05 17:50] LABS: Basophils # (Auto) 0.0 Thou/mm3 (0.0-0.2); Basophils % (Auto) 0 % (0-2.5); Eosinophils # (Auto) 0.8 Thou/mm3 (0.0-0.5); Eosinophils % (Auto) 9 % (0-10); Hematocrit 34.8 % (36.0-46.0); Hemoglobin 11.1 g/dL (12.0-16.0); Immature Granulocytes Auto 0.03 Thou/mm3 (0.00-0.00); Lymphocytes # (Auto) 1.6 Thou/mm3 (1.0-4.8); Lymphocytes % (Auto) 18 % (10-50); Mean Corpuscular HGB Conc 31.9 g/dl (31.0-37.0); Mean Corpuscular Hemoglobin 25.7 pg (25.0-35.0); Mean Corpuscular Volume 81 fL (80-100); Monocytes # (Auto) 0.5 Thou/mm3 (0.0-0.8); Monocytes % (Auto) 6 % (0-12); Neutrophils # (Auto) 6.0 Thou/mm3 (1.8-7.7); Neutrophils % (Auto) 67 % (37-80); Nucleated Red Blood Cell # 0.00 Thou/mm3 (0.00-0.00); Nucleated Red Blood Cell % 0 /100 WBC (0); Platelet Count 356 Thou/mm3 (140-440); RDW Standard Deviation 44.8 fL (36.4-46.3); Red Blood Count 4.32 Miln/mm3 (4.00-5.20); White Blood Count 8.9 Thou/mm3 (3.6-11.0)
[2025-01-05 18:06] LABS: B-Type Natriuretic Peptide < 20 pg/mL (0-100)
[2025-01-05 18:09] LABS: Alanine Aminotransferase 7 U/L (10-49); Albumin, Serum 3.7 gm/dL (3.5-5.0); Albumin/Globulin Ratio 1.2 (1.2-2.2); Alkaline Phosphatase 79 U/L (46-116); Anion Gap 12 (7-16); Aspartate Amino Transferase 11 U/L (0-34); BUN/Creatinine Ratio 10 Ratio (12-20); Bilirubin,Total 0.3 mg/dL (0.3-1.2); Blood Urea Nitrogen 8 mg/dL (9-23); Calcium 8.8 mg/dL (8.3-10.6); Calcium (Corrected) 9.0 mg/dL (8.5-10.1); Carbon Dioxide 23.0 mMol/L (20.0-31.0); Chloride 106 mMol/L (98-107); Creatinine (Component) 0.8 mg/dL (0.6-1.3); Estimated Creatinine Clearance 108.1 mL/min (>60); Globulin 3.0 gm/dL (2.3-3.5); Glucose 106 mg/dL (74-106); Osmolality,Calculated 279 (275-295); Potassium 3.4 mMol/L (3.4-5.1); Sodium 141 mMol/L (136-145); Total Protein 6.7 gm/dL (5.7-8.2); Troponin I < 0.002 ng/mL (0.0-0.045); eGFR > 60 See Note
[2025-01-05 18:34] LABS: Collection Type, Urine Clean Catch
[2025-01-05 18:51] LABS: Amorphous Crystals,Urine Present (Absent); Bilirubin,Urine Negative (Negative); Blood,Urine 2+ (Negative); Clarity,Urine Clear (Clear/Hazy); Color,Urine Lt-Yellow (Lt Yel-Yel); Culture Indicated,Urine Not Indicated; Glucose, Urine Negative (Negative); Ketones,Urine Negative (Negative); Leukocyte Esterase,Urine Negative (Negative); Nitrite,Urine Negative (Negative); PH,Urine 6.5 (5.0-7.0); Protein,Urine Negative (Neg - Trace); RBC,Urine 21 /hpf (0-3); Specific Gravity,Urine 1.020 (1.001-1.035); Squamous Epithelial Cell,Urine < 1 /hpf (0-5); Urobilinogen,Urine Negative mg/dL (0.0-1.0); WBC,Urine < 1 /hpf (0-5)
--- NOTE | 2025-01-05 19:42 | PD.EDCHEST ---
ED Chest Pain RME/HPI General Chief Complaint: Chest Pain Stated Complaint: CHEST PAIN X 2 DAYS, PAIN W/ BREATHING/COUGHING Time Seen by Provider: 01/05/25 17:09 Arrival date/time: 01/05/25 16:52 RME / HPI RME / HPI narrative: 01/05/25 16:52 39-year-old female with no known medical history presents to the emergency room with a chief complaint of left-sided 7 out of 10 sternal chest pain x 2 days I have greeted and performed a focused initial assessment of this patient. A comprehensive ED assessment and evaluation of the patient, analysis of all test results, and completion of the medical decision making process will be conducted by additional ED providers. ------ See [facility] for Dr. Carey's HPI documentation. Related Data Home Medications ?Medication ?Instructions ?Recorded ?Confirmed albuterol sulfate 90 mcg/actuation 2 puff inhalation Q6H PRN Dyspnea 03/13/21 03/13/21 aerosol inhaler (Ventolin HFA) Previous Rx's ?Medication ?Instructions ?Recorded albuterol sulfate 90 mcg/actuation 2 puff inhalation QID #8.5 grams 03/14/21 aerosol inhaler albuterol sulfate 90 mcg/actuation 2 puff inhalation QID PRN 05/17/21 aerosol inhaler shortness of breath or wheezing #8.5 grams azithromycin 250 mg tablet See Rx Instructions PO .COMPLEX #6 05/17/21 tabs amoxicillin 875 mg-potassium 1 tab PO BID #14 tabs 05/26/21 clavulanate 125 mg tablet (Augmentin) fexofenadine 60 mg-pseudoephedrine 1 tab PO Q12H PRN sinus symptoms 05/26/21 ER 120 mg tablet,ext.release,12 hr #14 tabs (Maggi-D 12 Hour) prednisone 50 mg tablet 50 mg PO QDAY #5 tabs 05/26/21 sulfamethoxazole 800 1 tab PO Q12H #14 tabs 10/20/22 mg-trimethoprim 160 mg tablet (Bactrim DS) prednisone 50 mg tablet 50 mg PO QDAY #5 tabs 11/12/22 Lactobacillus 1 cap PO QDAY #30 caps 03/15/23 acidophilus-Bifidobac.animalis 2.5 billion cell capsule (Daily Probiotic) vkcpfekciq-mmfrotkmayjxg-pzwccegp 1 cap PO Q6H PRN headache #20 caps 03/15/23 50 mg-300 mg-40 mg capsule (Fioricet) ondansetron 4 mg disintegrating 4 mg PO Q6H PRN nausea and 03/15/23 tablet vomiting #10 tabs dicyclomine 20 mg tablet 20 mg PO BID #14 tabs 03/26/23 metronidazole 500 mg tablet 500 mg PO BID #14 tabs 03/26/23 ondansetron 4 mg disintegrating 4 mg PO Q8H #20 tabs 03/26/23 tablet acetaminophen 500 mg capsule 1,000 mg (2 x 500 mg) PO Q8HR PRN 05/06/23 pain #30 caps ibuprofen 800 mg tablet 800 mg PO TID PRN pain #30 tabs 05/06/23 ondansetron 4 mg disintegrating 4 mg PO Q8H PRN nausea and 05/06/23 tablet vomiting #10 tabs ibuprofen 600 mg tablet 600 mg PO Q8H PRN pain #20 tabs 03/09/24 acetaminophen 500 mg tablet 1,000 mg (2 x 500 mg) PO Q6H PRN 04/10/24 (Tylenol Extra Strength) pain #30 tabs ibuprofen 600 mg tablet 600 mg PO Q6H PRN pain #30 tabs 04/10/24 amoxicillin 875 mg-potassium 1 tab PO BID #10 tabs 04/23/24 clavulanate 125 mg tablet benzonatate 100 mg capsule 100 mg PO TID #14 caps 06/15/24 pantoprazole 40 mg tablet,delayed 40 mg PO QDAY #30 tabs 11/15/24 release (Protonix) acetaminophen 300 mg-codeine 30 mg 2 tab PO Q8H PRN pain #20 tabs 01/05/25 tablet ibuprofen 800 mg tablet 800 mg PO Q8H PRN pain #30 tabs 01/05/25 Allergies Allergy/AdvReac Type Severity Reaction Status Date / Time ciprofloxacin Allergy Severe itching Verified 01/05/25 16:55 Review of Systems Review of Systems Systems Reviewed: All systems reviewed, normal except as documented Past Medical History Past Medical History NEUROLOGIC: Positive Migraine; Negative Neurological Disorders CARDIAC: Negative Cardiac Disorders or Congestive Heart Failure RESPIRATORY: Positive Asthma; Negative Chronic Obstructive Pulmonary Disease (COPD) GASTROINTESTINAL: Positive Gall Bladder Disease; Negative Gastrointestinal Disorders GENITOURINARY: Negative Genitourinary Disorders or Renal Disease REPRODUCTIVE: Positive Previous Pregnancies; Negative Breast Cancer MUSCULOSKELETAL: Negative Musculoskeletal Disorders ENDOCRINE: Negative Endocrine Disorders, Diabetes Mellitus Type 1 or Diabetes Mellitus Type 2 HEMATOLOGIC: Negative Blood Disorders or Sickle Cell Disease OTHER HISTORY: Positive Blood Transfusions and Chicken Pox; Negative Autoimmune Disease, Blood Transfusion Reaction, Organ Transplant, MRSA, Clostridium Difficile or Breast Cancer Family History FAMILY HISTORY: Positive Family Respiratory Disorders, Family Cardiac Disorders, Family Gastrointestinal Problems and Family Surgery; Negative Family Psychiatric Problems, Family Cancer or Family Anesthesia Reaction Surgical History SURGICAL: Positive Abdominal Surgery, Tubal Ligation and Section; Negative Cardiac Surgery, Endocrine Surgery, Ear Surgery or Organ Transplant Social History SMOKING STATUS: Never smoker SUBSTANCE USE: does not use ED Exam Narrative Physical exam: See [facility] for Dr. Carey's physical exam documentation. Course Course Course Narrative: CXR is ordered for determining the etiology of chest pain. Quality Measures none Orders Category Date Time Status Bedside COVID-19 Antigen Test NOW Care 01/05/25 17:24 Completed Bedside Influenza A&B Antigen Test NOW Care 01/05/25 17:24 Completed EKG (ED ONLY) *Do not use* NOW Care 01/05/25 17:24 Completed EKG (ED Only) Stat Exams 01/05/25 17:24 Draft XR chest 2V Stat Exams 01/05/25 17:24 Completed B-Type Natriuretic Peptide Stat Lab 01/05/25 17:31 Completed CBC Stat Lab 01/05/25 17:31 Completed Comprehensive Metabolic Panel Stat Lab 01/05/25 17:31 Completed Troponin I Stat Lab 01/05/25 17:31 Completed Urinalysis, C/S if Indicated Stat Lab 01/05/25 18:13 Completed Vital Signs Vital signs: Vital Signs Temperature 98.8 F 01/05/25 17:19 Pulse Rate 101 H 01/05/25 17:19 Respiratory Rate 16 01/05/25 17:19 Blood Pressure 113/75 01/05/25 17:19 Pulse Oximetry (%) 100 01/05/25 17:19 Oxygen Delivery Method Room Air 01/05/25 17:19 Chest Pain MDM Narrative [facility] Narrative:: This section includes all my notes and documentations, including HPI, PE, and ED course. Robert Carey MD HPI: 39yo female here with left-sided chest pain for the last few days. No shortness of breath or cough. No other complaints reported. ROS: All negative except as documented in HPI. Physical Exam: General: Alert and oriented. No acute distress when remaining still. Eyes: Conjunctivae and lids clear. ENT: No nasal congestion. Neck: Supple. Heart: RRR. Lungs: No respiratory distress. Good air movement. No rhonchi, wheezing, rales. Chest: Palpation of the anterior chest left of the sternum reproduces her pain. Abdomen: Soft and nontender. Skin: Warm and dry. Neuro: Alert and oriented X 3. I reviewed all diagnostic test results. My interpretation of the EKG is sinus tachycardia with nonspecific ST-T changes. My interpretation of the chest x-ray is NAD. Blood tests and urine tests are unremarkable. At this point, diagnoses include: Chest wall pain Recommended more outpatient cardiac workup. Based on my best medical judgment, made decision no further evaluation or treatment indicated at this time. Patient understands and agrees to the discharge instructions customized and printed, see below. Discharge instructions from Dr. Carey: 1. After extensive evaluation, there is no life-threatening condition. Such as heart attack or pneumothorax (collapsed lung). 2. Your pain is originating from the chest wall and not from an internal organ. The chest wall has many joints and muscles between the ribs, so sprains and strains are common. 3. Apply ice or heat if helpful. Ibuprofen 800 mg every 6-8 hours today and tomorrow to decrease inflammation then as needed. Tylenol with codeine for severe pain. 4. See a private doctor on 01/06/2025 for recheck and further care. To make sure there is no serious underlying heart condition, ask to help you get more tests for your heart that cannot be done here in the ER. Such as Holter Monitor (cardiac monitoring at home from a day to even a month), heart stress test (on treadmill or with medication), echocardiogram (imaging of your heart structures), heart catherization (checking for blockages in your heart arteries), and a referral to see a Detective. Ask to review all test results and official radiology reports, to make sure you receive all necessary follow-ups and monitoring. 5. Seek immediate medical care with worsening or with any concerns. Robert Carey MD Patient data External records reviewed:: [facility] previous records (Per chart review, patient was seen here on 11/14/24 for difficulty swallowing solids.) Clinical information provided by:: patient Social determinants that could affect healthcare access:: none Patient has the following chronic illnesses:: asthma How is presenting disease/condition affected by chronic disease/condition?: uneffected by Evaluation data The following diagnostics were reviewed and interpreted by me:: lab results, radiology exam(s) and EKG tracing(s) (My interpretation of the EKG is: Sinus tachycardia (100 bpm) with nonspecific ST-T changes. Robert Carey MD) Lab and/or radiology exams considered but not ordered:: none Interpretation Summary: I reviewed all diagnostic test results. My interpretation of the EKG is sinus tachycardia with nonspecific ST-T changes. My interpretation of the chest x-ray is NAD. Blood tests and urine tests are unremarkable. Medications / Prescriptions Medications or Prescriptions considered but not ordered:: none Medication administrations:: none Consultations Consultation(s) initiated? (list below): No Diagnosis Chest Pain Differential Diagnosis: pneumothorax, atypical chest pain, st elevation myocardial infarction, costochondritis and other (NSTEMI) Most likely diagnosis given after review of the tests above:: Chest wall pain Admission Indicated Admission indicated?: not indicated Explain why admission is indicated or not indicated:: With no condition needing emergent intervention, there was no indication for admission. Admission Request Was there a request for admission?: No Disposition Plan Disposition Plan: Discharge Discharge Attestation Discharge Attestation: The patient and all family members were given an opportunity to ask questions and understood the discharge instructions. Discharge instructions specifically effects, indications for sooner follow up or return to the emergency department, and the expected course of current diagnosis. Patient condition: Stable Discharge Plan Plan Patient Disposition: HOME (Self Care) Prescriptions/Referrals Prescriptions/Med Rec: New ibuprofen 800 mg tablet 800 mg PO Q8H PRN (Reason: pain) Qty: 30 0RF acetaminophen-codeine 300-30 mg tablet 2 tab PO Q8H MDD 6 PRN (Reason: pain) Qty: 20 0RF No Action albuterol sulfate [Ventolin HFA] 90 mcg/actuation Hfa Aerosol Inhaler 2 puff INHALATION Q6H PRN (Reason: Dyspnea) albuterol sulfate 90 mcg/actuation HFA aerosol inhaler 2 puff inhalation QID Qty: 8.5 0RF amoxicillin-pot clavulanate [Augmentin] 875-125 mg tablet 1 tab PO BID Qty: 14 0RF prednisone 50 mg tablet 50 mg PO QDAY Qty: 5 0RF fexofenadine-pseudoephedrine [Maggi-D 12 Hour] 60-120 mg tablet extended release 12 hr 1 tab PO Q12H PRN (Reason: sinus symptoms) Qty: 14 0RF albuterol sulfate 90 mcg/actuation HFA aerosol inhaler 2 puff inhalation QID PRN (Reason: shortness of breath or wheezing) Qty: 8.5 0RF azithromycin 250 mg tablet See Rx Instructions .ROUTE .COMPLEX Qty: 6 0RF Rx Instructions: For 250 mg dose pack: take 500 mg today (day 1), then 250 mg for 4 days (days 2-5) sulfamethoxazole-trimethoprim [Bactrim DS] 800-160 mg tablet 1 tab PO Q12H Qty: 14 0RF prednisone 50 mg tablet 50 mg PO QDAY Qty: 5 0RF ibuprofen 800 mg tablet 800 mg PO TID PRN (Reason: pain) Qty: 30 0RF acetaminophen 500 mg capsule 1,000 mg PO Q8HR PRN (Reason: pain) Qty: 30 0RF ondansetron 4 mg tablet,disintegrating 4 mg PO Q8H PRN (Reason: nausea and vomiting) Qty: 10 0RF ibuprofen 600 mg tablet 600 mg PO Q6H PRN (Reason: pain) Qty: 30 0RF acetaminophen [Tylenol Extra Strength] 500 mg tablet 1,000 mg PO Q6H PRN (Reason: pain) Qty: 30 0RF amoxicillin-pot clavulanate 875-125 mg tablet 1 tab PO BID Qty: 10 0RF benzonatate 100 mg capsule 100 mg PO TID Qty: 14 0RF pantoprazole [Protonix] 40 mg tablet,delayed release (DR/EC) 40 mg PO QDAY Qty: 30 0RF qbuwtpgvjm-tbuqydwxqyqve-lawg [Fioricet] 50-300-40 mg capsule 1 cap PO Q6H PRN (Reason: headache) Qty: 20 0RF Daily Probiotic 2.5 billion cell capsule 1 cap PO QDAY Qty: 30 0RF ondansetron 4 mg tablet,disintegrating 4 mg PO Q6H PRN (Reason: nausea and vomiting) Qty: 10 0RF metronidazole 500 mg tablet 500 mg PO BID Qty: 14 0RF dicyclomine 20 mg tablet 20 mg PO BID Qty: 14 0RF ondansetron 4 mg tablet,disintegrating 4 mg PO Q8H Qty: 20 0RF ibuprofen 600 mg tablet 600 mg PO Q8H PRN (Reason: pain) Qty: 20 0RF Referrals: No Primary/Family,Physician [Primary Care Provider] - In 1 week Problem List Clinical Impression: Chest wall pain Patient/Caregiver Discharge Instructions Discharge Activity: activity as tolerated Education Materials: ED Chest Wall Strain (Child) Additional Instructions: Discharge instructions from Dr. Carey: 1. After extensive evaluation, there is no life-threatening condition.? Such as heart attack or pneumothorax (collapsed lung). 2. Your pain is originating from the chest wall and not from an internal organ.? The chest wall has many joints and muscles between the ribs, so sprains and strains are common.?? 3. Apply ice or heat if helpful.? Ibuprofen 800 mg every 6-8 hours today and tomorrow to decrease inflammation then as needed. Tylenol with codeine for severe pain. 4. See a private doctor on 01/06/2025 for recheck and further care. To make sure there is no serious underlying heart condition, ask to help you get more tests for your heart that cannot be done here in the ER.? Such as Holter Monitor (cardiac monitoring at home from a day to even a month), heart stress test (on treadmill or with medication), echocardiogram (imaging of your heart structures), heart catherization (checking for blockages in your heart arteries), and a referral to see a Detective.? Ask to review all test results and official radiology reports, to make sure you receive all necessary follow-ups and monitoring. 5. Seek immediate medical care with worsening or with any concerns.?? Print Language: Algerian Stand Alone Forms: [facility] Award Info., Patient Portal Info Letter
== END 2025-01-05 20:04 | disposition home or self-care (01) ==
PROVIDERS: Nurse Practitioner Family; Emergency Provider Emergency Medicine
DX: R07.89 Other chest pain (principal)
CPT/HCPCS: 36415; 71046; 80053; 81001; 83880; 84484; 85025; 93005; 99283

== ENCOUNTER 2025-02-21 15:09 | Emergency (ER) | payer MEDICAID, SELFPAY ==
[2025-02-21 15:21] VITALS: BP 128/83; PULSE 98; RESP 18; TEMP 36.8; O2SAT 97; BMI 31.9
--- NOTE | 2025-02-21 15:35 | XR_ITS ---
EXAMINATION: PA lateral chest 2 views TECHNIQUE: Upright PA lateral chest 2 views Date and time: February 21, 2025, 1540 hours INDICATIONS: Chest pain beginning 3 days ago. FINDINGS: Mild enlargement left ventricle. No pneumonia or pulmonary edema. Mild osteopenia. IMPRESSION: No pneumonia or pulmonary edema
[2025-02-21] MEDS: ACETAMINOPHEN 500 MG TABLET 1000 MG PO (15:39)
[2025-02-21] MEDS: PROMETHAZINE/DM SYRUP 5 ML DOSE PO (15:39)
--- NOTE | 2025-02-21 15:40 | EDNOTE_ITS ---
<Statement entered by Lora Hanna MD - 02/28/25 14:33> As co-signing physician, I was present and available for consult prn. I concur with the plan and care as documented by the midlevel provider. ED Chest Pain RME/HPI General Chief Complaint: Chest Pain Stated Complaint: SHARP, INTERMITTENT UPPER L) CHEST PAIN X 3 DAYS Time Seen by Provider: 02/21/25 15:13 Arrival date/time: 02/21/25 15:09 This is a 39-year-old female that comes into the emergency room with complaints of intermittent chest pain to the left side of her chest for the last 3 days. Patient states that it hurts when she coughs, takes a deep breath, or pain to palpation to the left side of her chest. Patient also complains of some congestion. Related Data Home Medications ?Medication ?Instructions ?Recorded ?Confirmed albuterol sulfate 90 mcg/actuation 2 puff inhalation Q 6H PRN Dyspnea 03/13/21 03/13/21 aerosol inhaler (Ventolin HFA) Previous Rx's ?Medication ?Instructions ?Recorded albuterol sulfate 90 mcg/actuation 2 puff inhalation Q ID #8.5 grams 03/14/21 aerosol inhaler albuterol sulfate 90 mcg/actuation 2 puff inhalation Q ID PRN 05/17/21 aerosol inhaler shortness of breath or wheez ing #8.5 grams azithromycin 250 mg tablet See Rx Instructions PO .COM PLEX #6 05/17/21 tabs amoxicillin 875 mg-potassium 1 tab PO BID #14 tabs clavulanate 125 mg tablet (Augmentin) fexofenadine 60 mg-pseudoephedrine 1 tab PO Q12H PRN s inus symptoms 05/26/21 ER 120 mg tablet,ext.release,12 hr #14 tabs (Maggi-D 12 Hour) prednisone 50 mg tablet 50 mg PO QDAY #5 tabs sulfamethoxazole 800 1 tab PO Q12H #14 tabs 10/20 mg-trimethoprim 160 mg tablet (Bactrim DS) prednisone 50 mg tablet 50 mg PO QDAY #5 tabs Lactobacillus 1 cap PO QDAY #30 caps 03/15 acidophilus-Bifidobac.animalis 2.5 billion cell capsule (Daily Probiotic) jqasyhioet-zcawoybwrcvtt-qvfdyjfi 1 cap PO Q6H PRN hea dache #20 caps 03/15/23 50 mg-300 mg-40 mg capsule (Fioricet) ondansetron 4 mg disintegrating 4 mg PO Q6H PRN nausea and 03/15/23 tablet vomiting #10 tabs dicyclomine 20 mg tablet 20 mg PO BID #14 tabs metronidazole 500 mg tablet 500 mg PO BID #14 tabs ondansetron 4 mg disintegrating 4 mg PO Q8H #20 tabs 1 05/26/22 tablet acetaminophen 500 mg capsule 1,000 mg (2 x 500 mg) PO Q8HR PRN 05/06/23 pain #30 caps ibuprofen 800 mg tablet 800 mg PO TID PRN pain #30 t abs 05/06/23 ondansetron 4 mg disintegrating 4 mg PO Q8H PRN nausea and 05/06/23 tablet vomiting #10 tabs ibuprofen 600 mg tablet 600 mg PO Q8H PRN pain #20 t abs 03/09/24 acetaminophen 500 mg tablet 1,000 mg (2 x 500 mg) PO Q 6H PRN 04/10/24 (Tylenol Extra Strength) pain #30 tabs ibuprofen 600 mg tablet 600 mg PO Q6H PRN pain #30 t abs 04/10/24 amoxicillin 875 mg-potassium 1 tab PO BID #10 tabs clavulanate 125 mg tablet benzonatate 100 mg capsule 100 mg PO TID #14 caps 05/30 11/20 pantoprazole 40 mg tablet,delayed 40 mg PO QDAY #30 ta bs 11/15/24 release (Protonix) acetaminophen 300 mg-codeine 30 mg 2 tab PO Q8H PRN pa in #20 tabs 01/05/25 tablet ibuprofen 800 mg tablet 800 mg PO Q8H PRN pain #30 t abs 01/05/25 ibuprofen 800 mg tablet 800 mg PO Q6H PRN pain #14 t abs 02/21/25 promethazine-DM 6.25 mg-15 mg/5 mL 5 ml PO Q6H PRN cou gh #120 mL 02/21/25 oral syrup Allergies Allergy/AdvReac Type Severity Reaction Status Date / Time ciprofloxacin Allergy Severe itching Verified 02/21/25 15:11 Review of Systems Review of Systems Systems Reviewed: All systems reviewed, normal except as documented Past Medical History Past Medical History NEUROLOGIC: Positive Migraine; Negative Neurological Disorders CARDIAC: Negative Cardiac Disorders or Congestive Heart Failure RESPIRATORY: Positive Asthma; Negative Chronic Obstructive Pulmonary Disease (COPD) GASTROINTESTINAL: Positive Gall Bladder Disease; Negative Gastrointestinal Disorders GENITOURINARY: Negative Genitourinary Disorders or Renal Disease REPRODUCTIVE: Positive Previous Pregnancies; Negative Breast Cancer MUSCULOSKELETAL: Negative Musculoskeletal Disorders ENDOCRINE: Negative Endocrine Disorders, Diabetes Mellitus Type 1 or Diabetes Mellitus Type 2 HEMATOLOGIC: Negative Blood Disorders or Sickle Cell Disease OTHER HISTORY: Positive Blood Transfusions and Chicken Pox; Negative Autoimmune Disease, Blood Transfusion Reaction, Organ Transplant, MRSA, Clostridium Difficile or Breast Cancer Family History FAMILY HISTORY: Positive Family Respiratory Disorders, Family Cardiac Disorders, Family Gastrointestinal Problems and Family Surgery; Negative Family Psychiatric Problems, Family Cancer or Family Anesthesia Reaction Surgical History SURGICAL: Positive Abdominal Surgery, Tubal Ligation and Section; Negative Cardiac Surgery, Endocrine Surgery, Ear Surgery or Organ Transplant Social History SMOKING STATUS: Never smoker SUBSTANCE USE: does not use ED Exam Narrative Physical exam: VITAL SIGNS: Reviewed. GENERAL APPEARANCE: Alert and interactive, follows commands, no acute distress, HEAD AND FACE: Non-traumatic. ENT: PERRL, conjuctiva pink and clear, eyelid no trauma, Mucous membrane moist. NECK: Supple, nontender, no nuchal rigidity. CHEST: no crepitus, no paradoxical movement, no retractions. Pain to pain palpation to the left side of upper chest LUNGS: Clear, well ventilated, symmetric, no rales, no wheezing, no rhonchi, no stridor, good breath sounds bilaterally. HEART: Regular rate, regular rhythm, no murmur, no gallops. ABDOMEN: Soft, nondistended, no guarding, nontender, no rebound, no masses, NEUROLOGICAL: Gross motor function intact sensory function intact, Appropriate for age. MUSCULOSKELETAL: low back nontender, full range of motion. EXTREMITIES: No redness no swelling no skin breakdown on bilateral foot and leg. Distal neurovascular status intact bilateral foot SKIN: Color pink, dry Course Quality Measures none Orders Category Date Time Status Bedside COVID-19 Antigen Test NOW Care 02/21/25 15:35 Completed Bedside Influenza A&B Antigen Test NOW Care 02/21/25 15:36 Completed XR chest 2V Stat Exams 02/21/25 15:35 Completed Acetaminophen Tab [Tylenol ES Tab] Med 02/21/25 15:35 Discontinued 1,000 mg PO X1 ONE Promethazine/Dextromethorph [Phenergan Dm Syrup] Med 02/21/25 15:35 Discontinued 5 ml PO X1 ONE Vital Signs Vital signs: Vital Signs Temperature 98.2 F 02/21/25 15:21 Pulse Rate 98 02/21/25 15:21 Respiratory Rate 18 02/21/25 15:21 Blood Pressure 128/83 02/21/25 15:21 Pulse Oximetry (%) 97 02/21/25 15:21 Oxygen Delivery Method Room Air 02/21/25 15:21 Chest Pain MDM Narrative MDM Narrative:: chest x ray: FINDINGS: Mild enlargement left ventricle. No pneumonia or pulmonary edema. Mild osteopenia. IMPRESSION: No pneumonia or pulmonary edema patient feels better after Tylenol and cough medicine given. I spoke to patient that this is likely pleurisy versus costochondritis. Will treat with anti-inflammatories and cough medicine. Patient likely has a viral illness. Patient feels comfortable going home at this time. Patient told to follow-up with primary provider in 1 to 2 days. Come back to the emergency room symptoms change or worsen. Dragon dictation: Although this document has been carefully reviewed, there may still be some phonetic and other typographical errors. These errors are purely grammatical due to imperfections in the software program and should not be construed in any way to compromise the substance of the patient's medical care during this visit. Patient data External records reviewed:: [facility] previous records Clinical information provided by:: patient and parent Social determinants that could affect healthcare access:: none Patient has the following chronic illnesses:: None How is presenting disease/condition affected by chronic disease/condition?: no chronic disease Evaluation data The following diagnostics were reviewed and interpreted by me:: radiology exam(s) Lab and/or radiology exams considered but not ordered:: See note Interpretation Summary: See note Medications / Prescriptions Medications or Prescriptions considered but not ordered:: None Medication administrations:: Medication Administration History Discontinued Medications Acetaminophen (Acetaminophen 500 Mg Tablet) 1,000 mg PO X1 ONE Stop: 02/21/25 15:36 Last Admin: 02/21/25 15:39 Dose: 1,000 mg Documented By: ARA Promethazine HCl/Dextromethorphan (Promethazine/Dm Syrup 5 Ml Dose) 5 ml PO X1 ONE; Protocol Stop: 02/21/25 15:36 Last Admin: 02/21/25 15:39 Dose: 5 ml Documented By: LP See MAR Consultations Consultation(s) initiated? (list below): No Diagnosis Chest Pain Differential Diagnosis: fracture of rib, pneumothorax, costochondritis and other ( pleurisy) Most likely diagnosis given after review of the tests above:: Costochondritis versus pleurisy Admission Indicated Admission indicated?: not indicated Admission Request Was there a request for admission?: No Disposition Plan Disposition Plan: Discharge Discharge Attestation Discharge Attestation: The patient and all family members were given an opportunity to ask questions and understood the discharge instructions. Discharge instructions specifically effects, indications for sooner follow up or return to the emergency department, and the expected course of current diagnosis. Patient condition: Stable Discharge Plan Plan Patient Disposition: HOME (Self Care) Patient condition on transfer: Stable Prescriptions/Referrals Prescriptions/Med Rec: New promethazine-DM 6.25-15 mg/5 mL syrup 5 ml PO Q6H PRN (Reason: cough) Qty: 120 0RF ibuprofen 800 mg tablet 800 mg PO Q6H PRN (Reason: pain) Qty: 14 0RF No Action albuterol sulfate [Ventolin HFA] 90 mcg/actuation Hfa Aerosol Inhaler 2 puff INHALATION Q6H PRN (Reason: Dyspnea) albuterol sulfate 90 mcg/actuation HFA aerosol inhaler 2 puff inhalation QID Qty: 8.5 0RF amoxicillin-pot clavulanate [Augmentin] 875-125 mg tablet 1 tab PO BID Qty: 14 0RF prednisone 50 mg tablet 50 mg PO QDAY Qty: 5 0RF fexofenadine-pseudoephedrine [Maggi-D 12 Hour] 60-120 mg tablet extended release 12 hr 1 tab PO Q12H PRN (Reason: sinus symptoms) Qty: 14 0RF albuterol sulfate 90 mcg/actuation HFA aerosol inhaler 2 puff inhalation QID PRN (Reason: shortness of breath or wheezing) Qty: 8.5 0RF azithromycin 250 mg tablet See Rx Instructions .ROUTE .COMPLEX Qty: 6 0RF Rx Instructions: For 250 mg dose pack: take 500 mg today (day 1), then 250 mg for 4 days (days 2-5) sulfamethoxazole-trimethoprim [Bactrim DS] 800-160 mg tablet 1 tab PO Q12H Qty: 14 0RF prednisone 50 mg tablet 50 mg PO QDAY Qty: 5 0RF ibuprofen 800 mg tablet 800 mg PO TID PRN (Reason: pain) Qty: 30 0RF acetaminophen 500 mg capsule 1,000 mg PO Q8HR PRN (Reason: pain) Qty: 30 0RF ondansetron 4 mg tablet,disintegrating 4 mg PO Q8H PRN (Reason: nausea and vomiting) Qty: 10 0RF ibuprofen 600 mg tablet 600 mg PO Q6H PRN (Reason: pain) Qty: 30 0RF acetaminophen [Tylenol Extra Strength] 500 mg tablet 1,000 mg PO Q6H PRN (Reason: pain) Qty: 30 0RF amoxicillin-pot clavulanate 875-125 mg tablet 1 tab PO BID Qty: 10 0RF benzonatate 100 mg capsule 100 mg PO TID Qty: 14 0RF pantoprazole [Protonix] 40 mg tablet,delayed release (DR/EC) 40 mg PO QDAY Qty: 30 0RF ibuprofen 800 mg tablet 800 mg PO Q8H PRN (Reason: pain) Qty: 30 0RF acetaminophen-codeine 300-30 mg tablet 2 tab PO Q8H MDD 6 PRN (Reason: pain) Qty: 20 0RF [id number] [Fioricet] 50-300-40 mg capsule 1 cap PO Q6H PRN (Reason: headache) Qty: 20 0RF Daily Probiotic 2.5 billion cell capsule 1 cap PO QDAY Qty: 30 0RF ondansetron 4 mg tablet,disintegrating 4 mg PO Q6H PRN (Reason: nausea and vomiting) Qty: 10 0RF metronidazole 500 mg tablet 500 mg PO BID Qty: 14 0RF dicyclomine 20 mg tablet 20 mg PO BID Qty: 14 0RF ondansetron 4 mg tablet,disintegrating 4 mg PO Q8H Qty: 20 0RF ibuprofen 600 mg tablet 600 mg PO Q8H PRN (Reason: pain) Qty: 20 0RF Referrals: Dorcas Ohara PA-C [Primary Care Provider] - In 1 week Problem List Clinical Impression: Acute costochondritis Patient/Caregiver Discharge Instructions Discharge Activity: activity as tolerated Education Materials: Costochondritis Additional Instructions: Follow up with primary provider in 1-2 days. Come back to ED if symptoms change or worsen Print Language: Hebrew Stand Alone Forms: Rebeka Award Info., Patient Portal Info Letter PA/FOOD BEVERAGE SUPERVISOR Supervising Physician PA/FOOD BEVERAGE SUPERVISOR Supervising Physician: [email or web address]
== END 2025-02-21 16:24 | disposition home or self-care (01) ==
PROVIDERS: Emergency Provider Emergency Medicine; PCP Physician Assistant
DX: M94.0 Chondrocostal junction syndrome [Tietze] (principal)
CPT/HCPCS: 71046; 87400; 87811; 99282; A9270

== ENCOUNTER 2025-04-13 12:24 | Emergency (ER) | payer MEDICAID, SELFPAY ==
[2025-04-13 12:32] VITALS: BP 132/88; PULSE 108; RESP 20; TEMP 36.6; O2SAT 98; BMI 34.1
--- NOTE | 2025-04-13 13:24 | EDNOTE_ITS ---
<Statement entered by Lora Hanna MD - 04/13/25 17:44> As co-signing physician, I was present and available for consult prn. I concur with the plan and care as documented by the midlevel provider. Upper Respiratory Inf. RME/HPI General Chief Complaint: Dental/Oral/Throat Stated Complaint: SORE, SWOLLEN THROAT 11/05 Time Seen by Provider: 04/13/25 12:35 Source: patient Arrival date/time: 04/13/25 12:24 39-year-old female with no known medical history presents to the emergency room with a chief complaint of a sore throat x 2 days Mode of arrival: ambulatory Limitations: no limitations Related Data Home Medications ?Medication ?Instructions ?Recorded ?Confirmed albuterol sulfate 90 mcg/actuation 2 puff inhalation Q 6H PRN Dyspnea 03/13/21 03/13/21 aerosol inhaler (Ventolin HFA) Previous Rx's ?Medication ?Instructions ?Recorded albuterol sulfate 90 mcg/actuation 2 puff inhalation Q ID #8.5 grams 03/14/21 aerosol inhaler albuterol sulfate 90 mcg/actuation 2 puff inhalation Q ID PRN 05/17/21 aerosol inhaler shortness of breath or wheez ing #8.5 grams azithromycin 250 mg tablet See Rx Instructions PO .COM PLEX #6 05/17/21 tabs amoxicillin 875 mg-potassium 1 tab PO BID #14 tabs clavulanate 125 mg tablet (Augmentin) fexofenadine 60 mg-pseudoephedrine 1 tab PO Q12H PRN s inus symptoms 05/26/21 ER 120 mg tablet,ext.release,12 hr #14 tabs (Maggi-D 12 Hour) prednisone 50 mg tablet 50 mg PO QDAY #5 tabs sulfamethoxazole 800 1 tab PO Q12H #14 tabs 10/20 mg-trimethoprim 160 mg tablet (Bactrim DS) prednisone 50 mg tablet 50 mg PO QDAY #5 tabs Lactobacillus 1 cap PO QDAY #30 caps 03/15 acidophilus-Bifidobac.animalis 2.5 billion cell capsule (Daily Probiotic) ispgrmccak-jjcbecqmqefrn-qghepooc 1 cap PO Q6H PRN hea dache #20 caps 03/15/23 50 mg-300 mg-40 mg capsule (Fioricet) ondansetron 4 mg disintegrating 4 mg PO Q6H PRN nausea and 03/15/23 tablet vomiting #10 tabs dicyclomine 20 mg tablet 20 mg PO BID #14 tabs metronidazole 500 mg tablet 500 mg PO BID #14 tabs ondansetron 4 mg disintegrating 4 mg PO Q8H #20 tabs 1 05/26/22 tablet acetaminophen 500 mg capsule 1,000 mg (2 x 500 mg) PO Q8HR PRN 05/06/23 pain #30 caps ibuprofen 800 mg tablet 800 mg PO TID PRN pain #30 t abs 05/06/23 ondansetron 4 mg disintegrating 4 mg PO Q8H PRN nausea and 05/06/23 tablet vomiting #10 tabs ibuprofen 600 mg tablet 600 mg PO Q8H PRN pain #20 t abs 03/09/24 acetaminophen 500 mg tablet 1,000 mg (2 x 500 mg) PO Q 6H PRN 04/10/24 (Tylenol Extra Strength) pain #30 tabs ibuprofen 600 mg tablet 600 mg PO Q6H PRN pain #30 t abs 04/10/24 amoxicillin 875 mg-potassium 1 tab PO BID #10 tabs clavulanate 125 mg tablet benzonatate 100 mg capsule 100 mg PO TID #14 caps 05/30 11/20 pantoprazole 40 mg tablet,delayed 40 mg PO QDAY #30 ta bs 11/15/24 release (Protonix) acetaminophen 300 mg-codeine 30 mg 2 tab PO Q8H PRN pa in #20 tabs 01/05/25 tablet ibuprofen 800 mg tablet 800 mg PO Q8H PRN pain #30 t abs 01/05/25 ibuprofen 800 mg tablet 800 mg PO Q6H PRN pain #14 t abs 02/21/25 promethazine-DM 6.25 mg-15 mg/5 mL 5 ml PO Q6H PRN cou gh #120 mL 02/21/25 oral syrup amoxicillin 875 mg-potassium 1 tab PO BID 7 days #14 t abs 04/13/25 clavulanate 125 mg tablet Allergies Allergy/AdvReac Type Severity Reaction Status Date / Time ciprofloxacin Allergy Severe itching Verified 04/13/25 12:27 Review of Systems Review of Systems Systems Reviewed: All systems reviewed, normal except as documented Constitutional Constitutional: Reports system reviewed and no additional complaints, except as documented, Denies fatigue, Denies fever(s), Denies headache(s) and Denies weakness Eyes Eyes: Reports system reviewed and no additional complaints, except as documented, Denies blurry vision and Denies change in vision ENT Ears, Nose, Mouth, and Throat: Reports system reviewed and no additional complaints, except as documented, Denies otalgia, Denies headache(s), Denies nasal congestion, Reports sore throat, Denies throat swelling and Denies vertigo Cardiovascular Cardiovascular: Reports system reviewed and no additional complaints, except as documented, Denies chest pain, Denies dyspnea and Denies dyspnea on exertion Respiratory Respiratory: Reports system reviewed and no additional complaints, except as documented, Denies chest congestion, Denies cough, Denies dyspnea, Denies dyspnea on exertion and Denies wheezing Gastrointestinal Gastrointestinal: Reports system reviewed and no additional complaints, except as documented, Denies abdominal pain, Denies cramping, Denies nausea and Denies vomiting Genitourinary Genitourinary: Reports system reviewed and no additional complaints, except as documented Musculoskeletal Musculoskeletal: Reports system reviewed and no additional complaints, except as documented and Denies back pain Integumentary/Breasts Skin/Breast: Reports system reviewed and no additional complaints, except as documented and Denies wounds Neurologic Neurologic: Reports system reviewed and no additional complaints, except as documented, Denies confusion, Denies headache(s), Denies lack of coordination, Denies vertigo and Denies weakness Psychiatric Psychiatric: Reports system reviewed and no additional complaints, except as documented, Denies anxiety, Denies confusion, Denies depression, Denies paranoia, Denies suicidal ideation and Denies tactile hallucinations Endocrine Endocrine: Reports system reviewed and no additional complaints, except as documented and Denies fatigue Hematologic/Lymphatic Hematologic/Lymphatic: Reports system reviewed and no additional complaints, except as documented and Denies lymphadenopathy Allergic/Immunologic Allergic/Immunologic: Reports system reviewed and no additional complaints, except as documented, Denies throat swelling, Denies urticaria and Denies wheezing Past Medical History Past Medical History NEUROLOGIC: Positive Migraine; Negative Neurological Disorders CARDIAC: Negative Cardiac Disorders or Congestive Heart Failure RESPIRATORY: Positive Asthma; Negative Chronic Obstructive Pulmonary Disease (COPD) GASTROINTESTINAL: Positive Gall Bladder Disease; Negative Gastrointestinal Disorders GENITOURINARY: Negative Genitourinary Disorders or Renal Disease REPRODUCTIVE: Positive Previous Pregnancies; Negative Breast Cancer MUSCULOSKELETAL: Negative Musculoskeletal Disorders ENDOCRINE: Negative Endocrine Disorders, Diabetes Mellitus Type 1 or Diabetes Mellitus Type 2 HEMATOLOGIC: Negative Blood Disorders or Sickle Cell Disease OTHER HISTORY: Positive Blood Transfusions and Chicken Pox; Negative Autoimmune Disease, Blood Transfusion Reaction, Organ Transplant, MRSA, Clostridium Difficile or Breast Cancer Family History FAMILY HISTORY: Positive Family Respiratory Disorders, Family Cardiac Disorders, Family Gastrointestinal Problems and Family Surgery; Negative Family Psychiatric Problems, Family Cancer or Family Anesthesia Reaction Surgical History SURGICAL: Positive Abdominal Surgery, Tubal Ligation and Section; Negative Cardiac Surgery, Endocrine Surgery, Ear Surgery or Organ Transplant Social History SMOKING STATUS: Never smoker SUBSTANCE USE: does not use ED Exam General Limitations: Present no limitations General appearance: Present alert and in no apparent distress Head Head exam: Present atraumatic Eye Eye exam: Present normal appearance, PERRL and EOMI ENT ENT exam: Present normal exam, normal oropharynx and mucous membranes moist Expanded ENT Exam External ear exam: Present normal external inspection Mouth exam: Present normal external inspection; Absent trismus Teeth exam: Present normal inspection Throat exam: Present tonsillar erythema and tonsillar exudate; Absent R peritonsillar mass, L peritonsillar mass or muffled voice Neck Neck exam: Present normal inspection, full ROM and trachea midline Chest Chest inspection: Present normal inspection and symmetric chest wall rise Respiratory Respiratory exam: Present normal lung sounds bilaterally Cardiovascular Cardiovascular exam: Present regular rate, normal rhythm and normal heart sounds Abdominal Exam Abdominal exam: Present soft and normal bowel sounds Extremities Exam Extremities exam: Present normal inspection and full ROM Back Exam Back exam: Present normal inspection and full ROM Neurological Exam Neurological exam: Present alert, oriented X3 and CN II-XII intact Psychiatric Psychiatric exam: Present normal affect and normal mood Skin Skin exam: Present warm, dry, intact and normal color Course Quality Measures none Orders Category Date Time Status cefTRIAXone [Rocephin] 1,000 mg Med 04/13/25 12:45 Discontinued Lidocaine 1% Pf Vial 5ml [Xylocaine 1% Pf 5 ml] 2.1 ml IM X1 dexAMETHasone INJ [Decadron Inj] Med 04/13/25 12:44 Discontinued 10 mg PO X1 ONE Vital Signs Vital signs: Vital Signs Temperature 97.9 F 04/13/25 12:32 Pulse Rate 108 H 04/13/25 12:32 Respiratory Rate 20 04/13/25 12:32 Blood Pressure 132/88 H 04/13/25 12:32 Pulse Oximetry (%) 98 04/13/25 12:32 Oxygen Delivery Method Room Air 04/13/25 12:32 Upper Respiratory Infection MDM Narrative MDM Narrative:: 39-year-old female with no known medical history presents to the emergency room with a chief complaint of a sore throat x 2 days Patient is hemodynamically stable and in no apparent distress Physical examination shows an erythemic posterior pharynx with bilateral tonsillar exudates. There is no peritonsillar abscess. There is no trismus. The patient is afebrile and O2 saturation is within normal limits Antibiotics were given to the patient and the patient was discharged Patient was discharged and educated to follow-up with primary care provider in the next 24 to 48 hours and return to the emergency room for any evidence of worsening signs or symptoms Patient data External records reviewed:: [facility] previous records Clinical information provided by:: patient Social determinants that could affect healthcare access:: none Patient has the following chronic illnesses:: No chronic illness How is presenting disease/condition affected by chronic disease/condition?: no chronic disease Evaluation data The following diagnostics were reviewed and interpreted by me:: lab results and radiology exam(s) Lab and/or radiology exams considered but not ordered:: Labs and radiology exams considered and ordered Interpretation Summary: N/A Medications / Prescriptions Medications or Prescriptions considered but not ordered:: Medication given Medication administrations:: Medication Administration History Discontinued Medications Ceftriaxone Sodium 1,000 mg/ (Lidocaine HCl 2.1 ml) 0 mg IM X1 ONE Stop: 04/13/25 12:46 Last Admin: 04/13/25 12:53 Dose: 2.1 mg Documented By: OA Dexamethasone Sodium Phosphate (Dexamethasone Sod Phos Inj 10 Mg/Ml Vial) 10 mg PO X1 ONE Stop: 04/13/25 12:45 Last Admin: 04/13/25 12:53 Dose: 10 mg Documented By: OA Medication given Consultations Consultation(s) initiated? (list below): No Diagnosis Upper Respiratory Differential Diagnosis: upper respiratory infection, viral infection, bronchitis, influenza and pharyngitis Most likely diagnosis given after review of the tests above:: Pharyngitis Admission Indicated Admission indicated?: not indicated Admission Request Was there a request for admission?: No Disposition Plan Disposition Plan: Discharge Discharge Attestation Discharge Attestation: The patient and all family members were given an opportunity to ask questions and understood the discharge instructions. Discharge instructions specifically effects, indications for sooner follow up or return to the emergency department, and the expected course of current diagnosis. Patient condition: Stable Discharge Plan Plan Patient Disposition: HOME (Self Care) Prescriptions/Referrals Prescriptions/Med Rec: New amoxicillin-pot clavulanate 875-125 mg tablet 1 tab PO BID 7 Days Qty: 14 0RF No Action albuterol sulfate [Ventolin HFA] 90 mcg/actuation Hfa Aerosol Inhaler 2 puff INHALATION Q6H PRN (Reason: Dyspnea) albuterol sulfate 90 mcg/actuation HFA aerosol inhaler 2 puff inhalation QID Qty: 8.5 0RF amoxicillin-pot clavulanate [Augmentin] 875-125 mg tablet 1 tab PO BID Qty: 14 0RF prednisone 50 mg tablet 50 mg PO QDAY Qty: 5 0RF fexofenadine-pseudoephedrine [Maggi-D 12 Hour] 60-120 mg tablet extended release 12 hr 1 tab PO Q12H PRN (Reason: sinus symptoms) Qty: 14 0RF albuterol sulfate 90 mcg/actuation HFA aerosol inhaler 2 puff inhalation QID PRN (Reason: shortness of breath or wheezing) Qty: 8.5 0RF azithromycin 250 mg tablet See Rx Instructions .ROUTE .COMPLEX Qty: 6 0RF Rx Instructions: For 250 mg dose pack: take 500 mg today (day 1), then 250 mg for 4 days (days 2-5) sulfamethoxazole-trimethoprim [Bactrim DS] 800-160 mg tablet 1 tab PO Q12H Qty: 14 0RF prednisone 50 mg tablet 50 mg PO QDAY Qty: 5 0RF ibuprofen 800 mg tablet 800 mg PO TID PRN (Reason: pain) Qty: 30 0RF acetaminophen 500 mg capsule 1,000 mg PO Q8HR PRN (Reason: pain) Qty: 30 0RF ondansetron 4 mg tablet,disintegrating 4 mg PO Q8H PRN (Reason: nausea and vomiting) Qty: 10 0RF ibuprofen 600 mg tablet 600 mg PO Q6H PRN (Reason: pain) Qty: 30 0RF acetaminophen [Tylenol Extra Strength] 500 mg tablet 1,000 mg PO Q6H PRN (Reason: pain) Qty: 30 0RF amoxicillin-pot clavulanate 875-125 mg tablet 1 tab PO BID Qty: 10 0RF benzonatate 100 mg capsule 100 mg PO TID Qty: 14 0RF pantoprazole [Protonix] 40 mg tablet,delayed release (DR/EC) 40 mg PO QDAY Qty: 30 0RF ibuprofen 800 mg tablet 800 mg PO Q8H PRN (Reason: pain) Qty: 30 0RF acetaminophen-codeine 300-30 mg tablet 2 tab PO Q8H MDD 6 PRN (Reason: pain) Qty: 20 0RF promethazine-DM 6.25-15 mg/5 mL syrup 5 ml PO Q6H PRN (Reason: cough) Qty: 120 0RF ibuprofen 800 mg tablet 800 mg PO Q6H PRN (Reason: pain) Qty: 14 0RF ndknqcxijs-bzdsmmikfgrvi-bnxz [Fioricet] 50-300-40 mg capsule 1 cap PO Q6H PRN (Reason: headache) Qty: 20 0RF Daily Probiotic 2.5 billion cell capsule 1 cap PO QDAY Qty: 30 0RF ondansetron 4 mg tablet,disintegrating 4 mg PO Q6H PRN (Reason: nausea and vomiting) Qty: 10 0RF metronidazole 500 mg tablet 500 mg PO BID Qty: 14 0RF dicyclomine 20 mg tablet 20 mg PO BID Qty: 14 0RF ondansetron 4 mg tablet,disintegrating 4 mg PO Q8H Qty: 20 0RF ibuprofen 600 mg tablet 600 mg PO Q8H PRN (Reason: pain) Qty: 20 0RF Problem List Clinical Impression: Pharyngitis Patient/Caregiver Discharge Instructions Education Materials: When You Have a Sore Throat, Self-Care for Sore Throats Additional Instructions: Please follow-up with your primary care provider in the next 24 to 48 hours. You can take wsfb-ldl-ceetduc pain relievers such as ibuprofen or Tylenol for throat pain and fever Gargling warm salt water may help soothe your throat. Get plenty of rest and drink enough fluids to stay hydrated. It is very important you take all your antibiotics exactly as prescribed, even if you start feeling better. For any evidence of worsening signs or symptoms please return to the emergency room immediately Print Language: Chinese Stand Alone Forms: [employer]ka Award Info., Work/School Release, Patient Portal Info Letter
== END 2025-04-13 13:36 | disposition home or self-care (01) ==
LOC: SERX 13:32
PROVIDERS: Emergency Provider Emergency Medicine; PCP Physician Assistant
DX: J02.9 Acute pharyngitis, unspecified (principal)
CPT/HCPCS: 96372; 99282; J0696; J1100; J3490